=== PATIENT | female | born 1945 | race Caucasian/White ===

== ENCOUNTER 2019-09-24 01:36 | Emergency (ER) | payer MEDICARE, SELFPAY ==
--- NOTE | 2019-09-24 01:35 | ECG_ITS ---
Measurements Intervals [place] Rate: 94 P: 70 NV: 164 QRS: 9 QRSD: 102 T: 42 QT: 349 QTc: 438 SINUS RHYTHM POSSIBLE LEFT ATRIAL ENLARGEMENT [-0.1mV P WAVE IN V1/V2] Compared to ECG 01/29/2019 21:30:33 T-wave abnormality no longer present Possible ischemia no longer present Electronically Signed On 09-24-2019 20:11:43 INSTRUMENT REPAIR SPECIALIST by Moustapha Santana M.D. [id number] f
[2019-09-24 01:36] VITALS: BP 106/62; PULSE 166; RESP 20; O2SAT 96
[2019-09-24 01:39] VITALS: BP 104/88; PULSE 166; RESP 22; TEMP 36.6; O2SAT 99; BMI 29.2
--- NOTE | 2019-09-24 01:41 | ED_ITS ---
Entered by Tawny Rdz, acting as scribe for Master Wells MD HPI - Arrhythmia/Palpitations General: Chief Complaint: Arrhythmia/Palpitations Stated Complaint: FAST HR Time Seen by Provider: 09/24/19 01:38 Source: patient and family Mode of arrival: ambulatory Limitations: no limitations History of Present Illness: HPI narrative: 74 y/o female presents to the ED with complaint of rapid heart rate. Pt states this started around 2030 last night. She has of hx of this and is followed by Dr. Sinha. TREADWELL complaint: rapid heart beat and heart racing Onset (ago): hour(s) Duration: constant Severity: moderate Context: occurred during rest Associated symptoms: Deny nausea or vomiting Review of Systems Const: Denies: fever or chills Eyes: Denies: change in vision ENMT: Denies: throat pain or mouth pain Card: Reports: palpitations and irregular heart rhythm; Denies: chest pain Resp: Denies: shortness of breath GI: Denies: nausea or vomiting : Denies: difficulty urinating Musc: Denies: back pain or joint pain Skin/Breast: Denies: rash Neuro: Denies: headache or behavioral changes Psych: Denies: depression Endo: Denies: excessive urination Erasmo/Lymph: Denies: easy bruising All/Imm: Denies: hives PFSH ED PFSH: Statuses (acute, chronic, etc) shown below reflect problem list status as previously entered and may not be historically accurate Social History Smoking and tobacco status: former smoker Physical Exam Const: COMMON NORMALS: no apparent distress, oriented x3 and healthy appearing HENMT: COMMON NORMALS: normocephalic and external nose normal HEAD & SCALP: normocephalic NOSE: external nose normal Eye: COMMON NORMALS: PERRL PUPIL: Yes PERRL Neck/C-Spine: COMMON NORMALS: full ROM and no lymphadenopathy Chest: COMMONS NORMALS: inspection of chest normal Resp: COMMON NORMALS: normal respiratory effort, no use of accessory muscles and clear to auscultation bilaterally AUSCULTATION: clear to auscultation bilaterally Cardio: RATE: tachycardic RHYTHM: abnormal rhythm GI: COMMON NORMALS: normal to inspection, nondistended, normoactive bowel sounds, soft to palpation, non-tender and no masses PALPATION: Yes soft Back/Pelvis: THORACIC SPINE/UPPER BACK: Yes normal to inspection Extremity: COMMON NORMALS: normal to inspection, full ROM and normal capillary refill Neuro: COMMON NORMALS: oriented x3 Psych: COMMON NORMALS: mental status grossly normal and cooperative Skin: COMMON NORMALS: no rashes or lesions noted GENERAL SKIN EXAM: no rashes or lesions noted Course Vital Signs: Vital signs: Vital Signs Temperature 97.8 F 09/24/19 01:39 Pulse Rate 166 H 09/24/19 01:39 Respiratory Rate 22 H 09/24/19 01:39 Blood Pressure 104/88 09/24/19 01:39 Pulse Oximetry 99 09/24/19 01:39 MDM - Arrhythmia/Palpitations MDM Narrative: Medical decision making narrative: Patient presents here with SVT. Patient converted here with adenosine. Patient feels much improved and is well-appearing here. 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 Patient is return if worsening. EKG Data^: EKG 1: Attestation: I personally reviewed and interpreted this EKG as follows: EKG interpretation date: 09/24/19 EKG interpretation time: 01:48 Interpretation: svt hr [address] or t wave abnormalities EKG 2: Attestation: I personally reviewed and interpreted this EKG as follows: EKG interpretation date: 09/24/19 EKG interpretation time: 02:07 Interpretation: nsr hr [address] or t wave abnormalities Discharge Plan Discharge Patient Disposition: Home, Self-Care Clinical Impression: Supraventricular tachycardia Condition: Stable Discharge Orders: Discharge Order (Routine); Ordered 09/24/19 Ordered By: Master Wells Referrals: Gamaliel Smith, MITERING MACHINE OPERATOR-C [Primary Care Provider] - Angeles Sanchez MD [Physician] - 4-7 days Discharge Diet: Advance as tolerated Discharge Activity: Resume usual activity Patient Instructions: Supraventricular Tachycardia (ED) Coding Level of Care Code ED Fraternity House Cook for Chg Fwd Exam Problem Focused The documentation recorded by the Kendell yung Ashley, accurately reflects the service I personally performed and the decisions made by Priscilla elias Korby, MD Sep 24, 2019 01:36
[2019-09-24 01:50] VITALS: PULSE 86; RESP 14
--- NOTE | 2019-09-24 01:57 | ECG_ITS ---
Measurements Intervals [place] Rate: 162 P: ND: 0 QRS: 11 QRSD: 107 T: 58 QT: 266 QTc: 437 ATRIAL FLUTTER/TACHYCARDIA WITH RAPID VENTRICULAR RESPONSE INCOMPLETE RIGHT BUNDLE BRANCH BLOCK [90+ ms QRS DURATION, TERMINAL R IN V1/V2, 40+ 40+ ms S IN I/aVL/V4/V5/V6] MODERATE ST DEPRESSION [0.05+ mV ST DEPRESSION] CRITICAL TEST RESULT Compared to ECG 01/29/2019 21:30:33 Incomplete right bundle-branch block now present ST (T wave) deviation now present Sinus rhythm no longer present T-wave abnormality no longer present Possible ischemia no longer present Electronically Signed On 09-24-2019 20:11:40 BASIN CLEANER by Moustapha Santana M.D. [id number] bailey
[2019-09-24 03:39] VITALS: BP 117/78; PULSE 84; RESP 16; TEMP 36.9; O2SAT 96
--- NOTE | 2019-09-26 09:47 | DCPLANNER ---
support manager had message to schedule a follow up appointment for patient with [facility]. support manager called [facility], spoke with Sherri, a follow up appointment is scheduled for , September 25, [address] Sanchez. Clinic will call patient with appointment information.
== END 2019-09-24 03:02 | disposition home or self-care (01) ==
PROVIDERS: Emergency Provider Emergency Medicine; Family Provider Nurse Practitioner; PCP Nurse Practitioner
DX: I47.1 Supraventricular tachycardia (principal); Z87.891 Personal history of nicotine dependence
CPT/HCPCS: 93005; 99282

== ENCOUNTER → 2019-11-06 13:30 | Outpatient (BNVA) | payer MEDICARE, SELFPAY | PROVIDERS: Family Provider Nurse Practitioner; PCP Nurse Practitioner; Visit Provider Nurse Practitioner | DX: M25.552 Pain in left hip (principal) | CPT/HCPCS: 73502 ==

== ENCOUNTER → 2019-11-17 10:43 | Outpatient (BNVA) | payer MEDICARE, SELFPAY | PROVIDERS: Family Provider Nurse Practitioner; PCP Nurse Practitioner; Visit Provider Nurse Practitioner | DX: E87.6 Hypokalemia (principal) | CPT/HCPCS: 80048 ==

== ENCOUNTER 2019-11-19 14:39 | Outpatient (CLI) | payer MEDICARE, SELFPAY ==
--- NOTE | 2019-11-19 14:51 | XR_ITS ---
WS: [id number] Cervical spine, 3 views, 11/19/2019 Clinical Data: Neck pain Comparison: None. Findings: No compression fractures are seen. There is disc space narrowing at C3-C4 through C6-C7. Th ere is loss of the normal lordotic curvature. Anterior osteophyte formation from C3 through C6 is not ed. There is also posterior osteophyte formation from C3 through C7.. There is no prevertebral soft t issue swelling. The odontoid is unremarkable. The soft tissues of the neck show only minimal calcific ation in the soft tissues the lung apices are normal. XR/XR cervical spine 3V* [id number] Impression: 1. Osteoarthritis with degenerative disc disease from C3 through C7. 2. Minimal calcification in the soft tissues of the neck.
--- NOTE | 2019-11-19 14:51 | XR_ITS ---
WS: [id number] LUMBAR SPINE TECHNIQUE: 3 views of the lumbar spine CLINICAL INFORMATION: back pain COMPARISON: None. FINDINGS: Moderate lumbar scoliosis convex right. 5 nonrib-bearing lumbar vertebral bodies. Disc space narrowin g worse at L2-L3, L3-L4, L4-L5, and L5-S1. Vacuum disc phenomenon L3-4. Chronic appearing anterior we dging at L2 and L3. Slight retrolisthesis L3 on L4 and L4 on L5. Anterior hypertrophic changes. Advan janeen arthropathy lower lumbar spine. Pelvic phleboliths. XR/XR lumbar spine 2-3V* [id number] IMPRESSION: 1. Moderate lumbar scoliosis convex right. 2. Chronic appearing anterior wedging L2-3. 3. Advanced disc space narrowing L2-L3, L3-L4, L4-L5, and L5-S1. This is progr essed since the MRI 2018. 4. Slight retrolisthesis L3 on L4 and L4 on L5.
--- NOTE | 2019-11-19 14:51 | XR_ITS ---
WS: [id number] Thoracic spine, 3 views, 11/19/2019 Clinical Data: back pain Comparison: None. Findings: No compression fractures are seen. There is disc space narrowing from T5-T6 through T9-T10. There is a dextroscoliosis of the thoracic spine. Moderate osteoarthritic changes of the anterior tho racic vertebral bodies T5 through T11 is seen. There is a left shoulder arthroplasty. XR/XR thoracic spine 3V* [id number] Impression: 1. Degenerative disc narrowing and osteoarthritis from T5-T6 through T9-T10. 2. Dextroscoliosis of the thoracic spine.
== END 2019-11-19 14:40 | disposition home or self-care (01) ==
PROVIDERS: Family Provider Nurse Practitioner; PCP Nurse Practitioner; Visit Provider Nurse Practitioner
DX: M41.86 Other forms of scoliosis, lumbar region (principal); M47.896 Other spondylosis, lumbar region; M47.894 Other spondylosis, thoracic region; M54.2 Cervicalgia; M54.5 Low back pain
CPT/HCPCS: 72040; 72072; 72100

== ENCOUNTER → 2019-12-01 16:09 | Outpatient (BNVA) | payer MEDICARE, SELFPAY | PROVIDERS: Family Provider Nurse Practitioner; PCP Nurse Practitioner; Visit Provider Nurse Practitioner | DX: I47.1 Supraventricular tachycardia (principal); B35.1 Tinea unguium | CPT/HCPCS: 80053 ==

== ENCOUNTER → 2020-03-02 13:52 | Outpatient (BNVA) | payer MEDICARE, SELFPAY | PROVIDERS: Family Provider Nurse Practitioner; PCP Nurse Practitioner; Visit Provider Nurse Practitioner | DX: E78.5 Hyperlipidemia, unspecified (principal) | CPT/HCPCS: 80053; 80061 ==

== ENCOUNTER 2020-03-09 12:30 | Observation (INO) | payer MEDICARE, SELFPAY ==
[2020-03-09] VITALS (13 sets, daily range): BP systolic 83–145; BP diastolic 53–86; PULSE 58–86; RESP 14–18; TEMP 36.5–36.7; O2SAT 91–100; BMI 23.2
--- NOTE | 2020-03-09 12:37 | XRR_ITS ---
PROCEDURE INFORMATION: Exam: XR Chest, 1 View Exam date and time: 03/09/2020 12:39 PM Age: 74 years old Clinical indication: Chest pain; Type not specified TECHNIQUE: Imaging protocol: XR of the chest Views: 1 view. COMPARISON: CR Chest 1 [place] [id number] 01/29/2019 3:31 PM FINDINGS: Lungs: Unremarkable. No consolidation. Pleural space: Unremarkable. No pleural effusion. No pneumothorax. Heart/Mediastinum: Unremarkable. No cardiomegaly. Bones/joints: Unremarkable. XR/XR chest 1V portable [id number] IMPRESSION: No acute findings.
--- NOTE | 2020-03-09 12:37 | ECG_ITS ---
[facility] Test Date: 2020-03-09 Pat Name: Hanna Murphy Department: Room: Gender: Female Social Services Assistant: : 1945 Requested By: Brayan Virk Order Number: [id number] Liyah MD: Moustapha Santana M.D. Measurements Intervals [place] Rate: 86 P: 77 NC: 184 QRS: 28 QRSD: 88 T: 70 QT: 374 QTc: 449 Interpretive Statements SINUS RHYTHM WITH OCCASIONAL VENTRICULAR PREMATURE COMPLEXES POSSIBLE RIGHT VENTRICULAR CONDUCTION DELAY [RSR (QR) IN V1/V2] Compared to ECG 09/24/2019 02:07:29 Ventricular premature complex(es) now present Electronically Signed On 03-09-2020 19:33:19 CDT by Moustapha Santana M.D. [email or web address] general [email or web address] Biomedical Inc.[email or web address]/store/NU/[id number] f
[2020-03-09 13:27] LABS: Basophils % 0.3 %; Eosinophils # 0.1 10^3/uL (0.0-0.8); Eosinophils % 0.7 %; Hematocrit 41.4 % (37.0-47.0); Hemoglobin 13.4 g/dL (11.5-15.3); Lymphocytes # 1.8 10^3/uL (0.8-4.8); Mean Corpuscular HGB Conc 32.4 g/dL (30.0-36.0); Mean Corpuscular Hemoglobin 30.6 pg (28.0-34.0); Mean Corpuscular Volume 94.5 fL (81-99); Mean Platelet Volume 10.1 fL (7.4-10.4); Monocytes # 0.5 10^3/uL (0.2-0.9); Monocytes % 7.2 %; Neutrophils # 4.3 10^3/uL (1.8-7.7); Neutrophils % 64.5 %; Nucleated Red Blood Cells % 0 %; Platelet Count 249 10^3/cmm (130-400); Red Blood Count 4.38 10^6/uL (4.1-5.3); Red Cell Distribution Width 13.4 % (12.1-15.1); White Blood Count 6.7 10^3/uL (4.0-10.0)
--- NOTE | 2020-03-09 13:37 | W.ED.CHESTPA ---
HPI - Chest Pain General: Chief Complaint: Chest Pain Stated Complaint: SVT Time Seen by Provider: 03/09/20 12:37 History of Present Illness: HPI narrative: 74-year-old female comes in a near syncopal episode. Evidently she has had several of these episodes last few months that she eventually got a loop recorder they did do an ablation in December. Since then she is not had any syncopal episodes today she was standing at the sink making some sandwiches started get lightheaded and dizzy states she went down to her knees she never really fully lost consciousness did not actually fall she did not strike her head or have any other kind of trauma she felt like for a minute her heart was racing and her vision went black and that resolved. She does have a loop recorder in place which she analyzed and forwarded and were trying to get the results of that now. She had several of these episodes in the past but she said this 1 seemed more severe to the first 1 since the ablation she had done in December she not having any symptoms at all now when I see her in the emergency room. She usually sees Dr. mitchell. Did report having some chest pain during this episode. MD complaint: chest pain Pertinent past history: other (PSVT) Onset (ago): minute(s) Timing of current episode: episodic and now resolved Prior episodes: Yes Onset: during rest Pain location: left chest Severity: mild Quality: heaviness Relieving factors: nothing Exacerbating factors: nothing and other (Resolution of symptoms resolved the chest pain) Context: other (Known history of SVT with previous ablation in December of this year) Associated symptoms: Reports nausea, palpitations, sense of impending doom and syncope (Near syncopal episode); Deny dyspnea or fever(s) Treatment prior to arrival: none Review of Systems Const: Denies: fever(s), chills, body aches, change in appetite, fatigue or malaise ENMT: Denies: throat pain, ear or mastoid pain, nasal discharge or nasal congestion Card: Reports: palpitations and syncope (Near syncopal episode) Resp: Denies: dyspnea, productive cough or non-productive cough GI: Reports: nausea : Denies: flank pain, difficulty voiding, dysuria, urinary frequency or urinary urgency Skin/Breast: Denies: rash or pruritus PFS ED PFSH: Medical History Hyperlipidemia, unspecified Insomnia Juvenile idiopathic scoliosis, thoracolumbar region Restless leg Surgical History History of colonoscopy 2004 History of cystocele History of hysterectomy 04/22/2018 with BSO History of knee surgery Bilateral scope History of repair of rectocele History of shoulder surgery 2002 right shoulder replacement with 2 rotater cuff History of tubal ligation 1976 Family History Mother Cancer mother Heart disease Father Cancer lung Sister Hypertension Social History Smoking and tobacco status: former smoker Smoking risk assessment/counseling performed?: No Alcohol intake: never Desire information about alcohol rehabilitation?: No Counseling given: No Desire information about substance/drug rehabilitation?: No Counseling given: No Caregiver/support person: No Lives independently: Yes Household members: spouse Housing: House Marital status: Number of children: 2 Current occupational status: unemployed History of recent travel: No Current gender identity: Female Physical Exam Const: COMMON NORMALS: no acute distress GENERAL APPEARANCE: cooperative and comfortable ORIENTATION/CONSCIOUSNESS: Yes awake, Yes oriented to person, Yes oriented to place and Yes oriented to time HENMT: COMMON NORMALS: normocephalic, atraumatic, hearing grossly normal bilaterally, external ears normal, EAC's normal, TM's normal bilaterally, Normal nasal mucous membranes and turbinates present, moist oral mucous membranes and oropharynx normal HEAD & SCALP: normocephalic and atraumatic NOSE: Normal nasal mucous membranes and turbinates present EXTERNAL EAR: Yes external ears normal EXTERNAL AUDITORY CANAL: EAC's normal TYMPANIC MEMBRANE: TM's normal bilaterally Eye: COMMON NORMALS: Equal, round and reactive pupils present, EOMs intact bilaterally, conjunctivae normal and no scleral icterus CONJUNCTIVA: Yes conjunctivae normal PUPIL: Yes Equal, round and reactive pupils present Neck/C-Spine: COMMON NORMALS: full ROM, no lymphadenopathy, supple and no JVD Lymph: LYMPHATIC: no lymphadenopathy noted and no lymphedema noted Resp: COMMON NORMALS: normal respiratory effort, No retractions, No use of accessory muscles and clear to auscultation bilaterally AUSCULTATION: clear to auscultation bilaterally Cardio: COMMON NORMALS: no JVD, regular rate, regular rhythm and No murmurs present (Cardio) RATE: regular rate RHYTHM: regular rhythm GI: COMMON NORMALS: Soft to palpation and No hepatosplenomegaly present AUSCULTATION: Yes normoactive bowel sounds PALPATION: Yes Soft to palpation, No Tenderness to palpation present (GI), No Guarding due to palpation present (GI) and Yes No hepatosplenomegaly present Extremity: COMMON NORMALS: normal to inspection, capillary refill normal, no clubbing, cyanosis or edema, no calf tenderness and no pedal edema Neuro: SENSORIUM/ORIENTATION: Yes oriented to person, Yes oriented to place and Yes oriented to time Skin: COMMON NORMALS: no rashes or lesions noted GENERAL SKIN EXAM: no rashes or lesions noted Course Vital Signs: Vital signs: Vital Signs Temperature 98.6 F 03/10/20 13:55 Pulse Rate 75 03/10/20 13:55 Respiratory Rate 18 03/10/20 13:55 Blood Pressure 110/71 03/10/20 13:55 Pulse Oximetry 95 03/10/20 13:55 MDM - Chest Pain MDM Narrative: Medical decision making narrative: We were able to get a hold of a loop monitor she had another episode of SVT on a loop monitor that was sustained and resolved spontaneously. When he got and put her on the floor and watch her for a time may need further medications adjustments. Lab Data: Labs: Lab Results 03/09/20 03/09/20 03/09/20 Range/Units 13:10 13:10 13:10 WBC 6.7 (4.0-10.0) 10^3/ uL RBC 4.38 (4.1-5.3) 10^6/u L Hgb 13.4 (11.5-15.3) g/dL Hct 41.4 (37.0-47.0) % MCV 94.5 (81-99) fL MCH 30.6 (28.0-34.0) pg MCHC 32.4 (30.0-36.0) g/dL RDW 13.4 (12.1-15.1) % Plt Count 249 (130-400) 10^3/c mm MPV 10.1 (7.4-10.4) fL Neut % (Auto) 64.5 % Lymph % (Auto) 27.0 % Mineral % (Auto) 7.2 % Eos % (Auto) 0.7 % Baso % (Auto) 0.3 % Neut # (Auto) 4.3 (1.8-7.7) 10^3/u L Lymph # (Auto) 1.8 (0.8-4.8) 10^3/u L Mineral # (Auto) 0.5 (0.2-0.9) 10^3/u L Eos # (Auto) 0.1 (0.0-0.8) 10^3/u L Baso # (Auto) 0.0 (0.0-0.1) 10^3/u L Nucleated RBC % (a uto) 0 % Nucleated RBCs # 0.0 /100WBC Sodium 142 (136-145) mmol/L Potassium 3.7 (3.5-5.1) mmol/L Chloride 106 (98-107) mmol/L Carbon Dioxide 22 (22-29) mmol/L Anion Gap 17.7 (5-19) BUN 15 (8-23) mg/dL Creatinine 0.8 (0.5-0.9) mg/dL Glucose 90 (65-115) mg/dL Calculated Osmolal ity 290 (285-295) mOsm/k g Calcium 9.4 (8.5-10.5) mg/dL Total Bilirubin 0.4 (0.15-1.2) mg/dL AST 27 (0-32) U/L ALT 24 (0-33) U/L Alkaline Phosphata se 59 (35-105) IU/L Troponin T Baselin e 21 H (0-10) ng/L Troponin T 120 Min amirah (0-10) ng/L Delta Troponin T (0-10) ABS# Total Protein 6.8 (6.6-8.7) g/dL Albumin 4.1 (3.5-5.2) g/dL Globulin 2.7 (1.3-4.6) g/dL /30/20 Range/Units 15:10 WBC (4.0-10.0) 10^3/ uL RBC (4.1-5.3) 10^6/u L Hgb (11.5-15.3) g/dL Hct (37.0-47.0) % MCV (81-99) fL MCH (28.0-34.0) pg MCHC (30.0-36.0) g/dL RDW (12.1-15.1) % Plt Count (130-400) 10^3/c mm MPV (7.4-10.4) fL Neut % (Auto) % Lymph % (Auto) % Mineral % (Auto) % Eos % (Auto) % Baso % (Auto) % Neut # (Auto) (1.8-7.7) 10^3/u L Lymph # (Auto) (0.8-4.8) 10^3/u L Mineral # (Auto) (0.2-0.9) 10^3/u L Eos # (Auto) (0.0-0.8) 10^3/u L Baso # (Auto) (0.0-0.1) 10^3/u L Nucleated RBC % (a uto) % Nucleated RBCs # /100WBC Sodium (136-145) mmol/L Potassium (3.5-5.1) mmol/L Chloride (98-107) mmol/L Carbon Dioxide (22-29) mmol/L Anion Gap (5-19) BUN (8-23) mg/dL Creatinine (0.5-0.9) mg/dL Glucose (65-115) mg/dL Calculated Osmolal ity (285-295) mOsm/k g Calcium (8.5-10.5) mg/dL Total Bilirubin (0.15-1.2) mg/dL AST (0-32) U/L ALT (0-33) U/L Alkaline Phosphata se (35-105) IU/L Troponin T Baselin e (0-10) ng/L Troponin T 120 Min amirah 30.47 H (0-10) ng/L Delta Troponin T 9.47 (0-10) ABS# Total Protein (6.6-8.7) g/dL Albumin (3.5-5.2) g/dL Globulin (1.3-4.6) g/dL Discharge Plan Discharge Patient Disposition: Admitted As Inpatient Admit Provider: Reyes Hodge Clinical Impression: Supraventricular tachycardia Condition: Stable Discharge Orders: Discharge Order (Routine); Ordered 03/10/20 Ordered By: Reyes Hodge Discharge Diet: Cardiac Discharge Activity: Resume usual activity Interventions: ED Discharge Assessment Last Done: 03/09/20 16:35 ED Charges Last Done: 03/09/20 16:35 Discharge Date/Time: 03/09/20 16:36 Coding Level of Care Code ED Drop Wire Aligner for Chg Fwd Exam Comprehensive
[2020-03-09 13:54] LABS: Alanine Aminotransferase 24 U/L (0-33); Albumin Level 4.1 g/dL (3.5-5.2); Alkaline Phosphatase 59 IU/L (35-105); Anion Gap 17.7 (5-19); Aspartate Amino Transferase 27 U/L (0-32); Blood Urea Nitrogen 15 mg/dL (8-23); Calcium 9.4 mg/dL (8.5-10.5); Carbon Dioxide 22 mmol/L (22-29); Chloride 106 mmol/L (98-107); Globulin 2.7 g/dL (1.3-4.6); Glucose 90 mg/dL (65-115); Osmolality Calculated 290 mOsm/kg (285-295); Potassium 3.7 mmol/L (3.5-5.1); Sodium 142 mmol/L (136-145); Total Bilirubin 0.4 mg/dL (0.15-1.2); Total Protein 6.8 g/dL (6.6-8.7)
[2020-03-09 13:56] LABS: Troponin(5th) Baseline 21 ng/L (0-10)
[2020-03-09] MEDS: sodium chloride 0.9% 1,000 ML 999 ML IV ×3 (14:10→22:51)
--- NOTE | 2020-03-09 14:29 | PC.NURSE ---
loop recorder interrogation complete.
--- NOTE | 2020-03-09 14:37 | ECG_ITS ---
[facility] Test Date: 2020-03-09 Pat Name: Hanna Murphy Department: Room: Gender: Female Inventory Associate: : 1945 Requested By: Brayan Virk Order Number: [id number] Liyah MD: Moustapha Santana M.D. Measurements Intervals [place] Rate: 61 P: 77 [place]: 196 QRS: 20 QRSD: 97 T: 53 QT: 415 QTc: 419 Interpretive Statements SINUS RHYTHM POSSIBLE RIGHT VENTRICULAR CONDUCTION DELAY [RSR (QR) IN V1/V2] Compared to ECG 03/09/2020 12:42:38 Ventricular premature complex(es) no longer present Electronically Signed On 03-09-2020 19:34:13 CDT by Moustapha Santana M.D. [email or web address] centerTG Therapeuticsohio[facility].[employer]/store/OM/[id number]
[2020-03-09 15:34] LABS: Troponin 5 2HR 30.47 ng/L (0-10); Troponin 5 2HR Delta 9.47 ABS# (0-10)
--- NOTE | 2020-03-09 18:37 | ECG_ITS ---
[facility] ED Test Date: 2020-03-09 Pat Name: Hanna Murphy Department: Room: 111 Gender: Female Learning Administrator: : 1945 Requested By: Brayan Virk Order Number: [id number] Liyah MD: Moustapha Santana M.D. Measurements Intervals [place] Rate: 69 P: 69 [place]: 195 QRS: 33 QRSD: 94 T: 33 QT: 394 QTc: 425 Interpretive Statements SINUS RHYTHM Compared to ECG 03/09/2020 14:45:00 No significant changes Electronically Signed On 03-09-2020 19:34:23 CDT by Moustapha Santana M.D. [email or web address] Pharmaceuticalsuniversity of mississippi medical centerTPI Compositesohiohealth berger hospital.[employer]/store/OM/[id number]
--- NOTE | 2020-03-09 18:49 | P.HP_ITS ---
Providers/Chief Complaint Admitting Physician: Reyes Hodge MD Primary Care Provider: Gamaliel Smith, [employer] Chief Complaint: SVT History of Present Illness Hanna Murphy is a 74 year old female with PMH of SVT, s/p ablation in december 2019 at [facility], in situ loop recorder who presented to the ER today with EMS after she had a syncopal event in morning. Patient states she was in the kitchen working on a sandwich when she started having palpitations followed by nausea, dizziness and weakness in her legs. At that point she called loop recorder company and was told to have been having an SVT with heart rate going into 150s to 180 bpm. At that point she called the EMS. EMS gave her adenosine 6 followed by 12 after which her heart rate settled down to 50s. She was brought to the ER. Since being in the hospital patient has been rate controlled with her heart rate running in 60s and 70s. Patient denies of having any diarrhea, nausea, changes in her bowel movements, dysuria, cough, runny nose, fevers, changes in her medications recently. Patient's blood work done in the ER shows a hemoglobin of 13.4 with a normal white count with a normal sodium of 142, creatinine of 0.8, baseline troponin of 21 with a delta at 2 hours of 9. Review of Systems Const: Denies: fever(s), chills, body aches, change in appetite, malaise, night sweats, diaphoresis, change in sleep pattern, daytime sleepiness or snoring Eyes: Denies: change in vision, blurry vision, photophobia, eye discomfort or eye discharge ENMT: Denies: throat pain, enlarged tonsils, hoarseness, mouth pain, oral sores, dry mouth, tinnitus, nasal congestion or post nasal drip Card: Denies: chest pain, palpitations, irregular heart rhythm, edema, swelling of feet/ankles, lightheadedness, syncope, pre-syncope, dyspnea on exertion, orthopnea, leg pain with exertion or acrocyanosis Resp: Denies: dyspnea, productive cough, non-productive cough, wheezing, stridor, pain on inspiration, change in phlegm color, hemoptysis or chest congestion GI: Denies: abdominal pain, nausea, vomiting, hematemesis, coffee ground emesis, dysphagia, heartburn, diarrhea, constipation, bloating, GI cramping, change in bowel habits, pain on defecation, hematochezia or melena : Denies: flank pain, dysuria, urinary frequency, urinary urgency, urinary hesitancy, nocturia or hematuria Musc: Denies: neck pain, back pain, extremity pain, joint pain, joint swelling, joint redness, joint stiffness or limited range of motion Neuro: Reports: numbness in extremities, weakness in extremities and dizziness; Denies: headache(s), sensory changes, lack of coordination, difficulty walking, frequent falls, vertigo, confusion, Slurred speech present, difficulty communicating thoughts or seizure-like activity Psych: Denies: anxiety, depression, mood swings, panic attacks, hopelessness or irritability Endo: Denies: polyuria, polydipsia, tired all the time, cold intolerance, excessive sweating, flushing or heat intolerance Erasmo/Lymph: Denies: easy bruising or easy bleeding All/Imm: Denies: tongue swelling, facial swelling or acute wheezing Medications/Allergies Home Medications Medication Instructions Recorded Confirmed Last Taken Type furosemide 20 mg tablet 20 mg PO QAM PRN #90 tab 09/30/19 03/09/20 Unknown Rx nitroglycerin 0.4 mg sublingual 0.4 mg SUBLINGUAL PRN 09/30/19 03/09/20 03/09/20 History tablet potassium chloride 10 mEq 10 meq PO DAILY #90 tab 03/02/20 03/09/20 03/08/20 Rx tablet,extended release(part/cryst) tizanidine 4 mg tablet 4 mg PO BID PRN #180 tab 03/02/20 03/09/20 Unknown Rx zonisamide 100 mg capsule 100 mg PO BID #180 cap 03/02/20 03/09/20 03/08/20 Rx Lipitor 20 mg PO DAILY 03/09/20 03/09/20 03/08/20 History zolpidem 10 mg PO BEDTIME 03/09/20 03/09/20 03/08/20 History Allergies Allergy/AdvReac Type Severity Reaction Status Date / Time doxycycline Allergy ALGY-Rash Verified 03/09/20 13:55 trazodone Allergy feels weird Verified 03/09/20 13:55 PFSH Acute PFSH: Medical History Hyperlipidemia, unspecified Insomnia Juvenile idiopathic scoliosis, thoracolumbar region Restless leg Surgical History History of colonoscopy 2004 History of cystocele History of hysterectomy 04/22/2018 with BSO History of knee surgery Bilateral scope History of repair of rectocele History of shoulder surgery 2002 right shoulder replacement with 2 rotater cuff History of tubal ligation 1976 Family History Mother Cancer mother Heart disease Father Cancer lung Sister Hypertension Social History Smoking and tobacco status: former smoker Smoking risk assessment/counseling performed?: No Alcohol intake: never Desire information about alcohol rehabilitation?: No Counseling given: No Desire information about substance/drug rehabilitation?: No Counseling given: No Caregiver/support person: No Lives independently: Yes Household members: spouse Housing: House Marital status: Number of children: 2 Current occupational status: unemployed History of recent travel: No Current gender identity: Female Vitals/I&O/Wt Last Vital Signs Temp 98.1 F 03/09/20 12:31 Pulse 66 03/09/20 17:00 Resp 18 03/09/20 17:00 BP 122/86 03/09/20 17:00 Pulse Ox 97 03/09/20 17:00 03/09/20 03/09/20 03/09/20 06:59 14:59 22:59 Intake Total 240 / 240 Balance 240 / 240 Weight last 48 hrs Weight 55.792 kg Physical Exam Narrative: EXAM NARRATIVE: General: No acute distress, AO x3, dehydrated HEENT: PERRLA, pupils bilaterally equal and reactive Chest: Normal vesicular breath sounds, no added sounds, equal good air entry bilaterally CVS: S1-S2 regular, no murmurs, no tachycardia, no gallops, no rubs Abdomen: Soft, nontender, no organomegaly, bowel sounds present Neuro: No focal deficits, no facial deformity, AO x3, power 5/5 in all limbs Data : 03/09/20 13:10 03/09/20 13:10 A&P Assessment and plan (1) Supraventricular tachycardia: Status: Chronic (2) Syncope: Status: Acute Additional A&P Information Syncope secondary to supraventricular tachycardia: Patient is post ablation in December 11, 2019 Patient is not on any rate limiting drugs. Denies of having any changes in her medications, flu, fever-like symptoms. Troponins are negative. Check TSH. Last TSH in 2018 was within normal limits. Check echocardiogram. Case discussed with Dr. Sanchez. Start patient on metoprolol succinate 12.5 mg overnight and will monitor heart rate and blood pressures. Hold metoprolol for blood pressures less than 110 s ystolic. Normal saline at 100 cc/h. Check lipid panel, HbA1c, iron panel. Full code. Lovenox for DVT prophylaxis Regular cardiac diet. Attestations Medical Necessity Statement*: Observation. Admission for less than 48 hours for supplemental tachycardia. Time Spent in Patient Care: Greater than 35 minutes (>than 50% of time spent in counselling and/or direct pt care on unit) . Coding Level of Care Code Acute Inclusion Specialist for [place] Diagnoses Supraventricular tachycardia I47.1 Syncope R55
[2020-03-09] MEDS: ALPRAZolam 0.25 mg Tablet PO (18:58)
--- NOTE | 2020-03-09 19:04 | PC.NURSE ---
Verified with pharmacy that Metroprolol Succinate XL can be split in half in order to give correct dose ordered.
--- NOTE | 2020-03-09 19:08 | PC.NURSE ---
Dr. Callejas notified of blood pressure of 87/56. Ordered to hold 12.5 mg of Metoprolol Succinate that is due at this time. Fluid bolus will be ordered.
[2020-03-09] MEDS: enoxaparin 40 mg/0.4 mL Syringe SUBCUT (19:11)
--- NOTE | 2020-03-09 19:15 | PC.NURSE ---
Spoke with Dr. Fontanez who said to give Metoprolol if systolic blood pressure comes up to 110 after NS bolus is given.
[2020-03-09 19:53] LABS: Troponin 5 6HR 29.02 ng/L (0-10); Troponin 5 6HR Delta 8.02 ng/L (0-12)
[2020-03-09 19:55] LABS: Iron 71 ug/dL (37-145); Percent Saturation 31.6 % (20-50); Total Iron Binding Capacity 224 mcg/dl; Unsaturated Iron Binding 153 ug/dL (112-347)
[2020-03-09 20:05] LABS: Thyroid Stimulating Hormone 1.36 uIU/mL (0.27-4.20)
[2020-03-09] MEDS: sodium chloride 0.9% 1,000 ML 75 ML IV (20:31)
--- NOTE | 2020-03-09 21:32 | PC.NURSE ---
Dr. Callejas notified of patient's blood pressure currently 88 systolic. Right after bolus finished systolic was 95. Patient is asking for something to help her sleep, stating she takes Ambien at home. Patient received Xanax at shift change. Dr. Callejas notified of this. Ordered to give Midodrine 10 mg now.
[2020-03-09] MEDS: midodrine 5 mg TABLET 10 MG PO (21:55)
--- NOTE | 2020-03-09 22:39 | PC.NURSE ---
Dr. Callejas notified of blood pressure of 92/56 after Midodrine. She is still asking for her home dose of Ambien or something else to help her sleep.
[2020-03-10] VITALS (8 sets, daily range): BP systolic 86–115; BP diastolic 51–74; PULSE 53–75; RESP 15–18; TEMP 36.5–37; O2SAT 93–98
[2020-03-10 04:51] LABS: Basophils % 0.8 %; Eosinophils # 0.1 10^3/uL (0.0-0.8); Eosinophils % 1.6 %; Hemoglobin 11.1 g/dL (11.5-15.3); Lymphocytes # 2.2 10^3/uL (0.8-4.8); Lymphocytes % 42.7 %; Mean Corpuscular HGB Conc 31.7 g/dL (30.0-36.0); Mean Corpuscular Hemoglobin 30.7 pg (28.0-34.0); Mean Platelet Volume 11.1 fL (7.4-10.4); Monocytes # 0.4 10^3/uL (0.2-0.9); Monocytes % 7.4 %; Neutrophils # 2.4 10^3/uL (1.8-7.7); Neutrophils % 47.3 %; Nucleated Red Blood Cells % 0 %; Platelet Count 206 10^3/cmm (130-400); Red Blood Count 3.61 10^6/uL (4.1-5.3); Red Cell Distribution Width 13.7 % (12.1-15.1); White Blood Count 5.1 10^3/uL (4.0-10.0)
[2020-03-10 05:15] LABS: Alanine Aminotransferase 14 U/L (0-33); Albumin Level 3.1 g/dL (3.5-5.2); Alkaline Phosphatase 43 IU/L (35-105); Anion Gap 12.4 (5-19); Aspartate Amino Transferase 17 U/L (0-32); Blood Urea Nitrogen 15 mg/dL (8-23); Calcium 7.8 mg/dL (8.5-10.5); Carbon Dioxide 19 mmol/L (22-29); Chloride 113 mmol/L (98-107); Globulin 1.7 g/dL (1.3-4.6); Glucose 118 mg/dL (65-115); Osmolality Calculated 289 mOsm/kg (285-295); Potassium 3.4 mmol/L (3.5-5.1); Sodium 141 mmol/L (136-145); Total Bilirubin 0.2 mg/dL (0.15-1.2); Total Protein 4.8 g/dL (6.6-8.7)
[2020-03-10 05:20] LABS: Chol HDL Ratio 2.13 mg/dL (0.0-4.40); Cholesterol 117 mg/dL (0-200); HDL Cholesterol 55 mg/dL (60-100); LDL Cholesterol Calculated 43 mg/dL (50-129); Triglycerides 95 mg/dL (0-150); VLDL Cholestrol Calculation 19 mg/dL (0-30)
[2020-03-10 05:24] LABS: Magnesium 1.6 mg/dL (1.7-2.3); Phosphorus 3.1 mg/dL (2.5-4.5)
[2020-03-10 06:20] LABS: Estmated Average Glucose 103; Hemoglobin A1C 5.2 % (4.0-6.0)
--- NOTE | 2020-03-10 07:00 | USCV_ITS ---
Hanna Murphy Age: 74 Gender: F : 1945 Exam Date: 03/10/2020 07:06 Ordering Phys: Reyes Hodge MD Technologist: Cleo Estrada [place] [facility] [place]: SVT BP: 94 / 58 HR: 143 Rhythm: Sinus Technical Quality: Good MEASUREMENTS (Male / Female) Normal Values 2D ECHO LV Diastolic Diameter PLAX 4.5 cm 4.2 - 5.9 / 3.9 - 5.3 cm LV Systolic Diameter PLAX 2.1 cm IVS Diastolic Thickness 0.9 cm 0.6 - 1.0 / 0.6 - 0.9 cm IVS Systolic Thickness 1.4 cm LVPW Diastolic Thickness 0.7 cm 0.6 - 1.0 / 0.6 - 0.9 cm LVPW Systolic Thickness 1.4 cm LVOT Diameter 2.1 cm LV Ejection Fraction 2D Teich 84.2 % LV Ejection Fraction MOD 2C 75.9 % LV Ejection Fraction 2C AL 75.9 % LA Diameter 2.5 cm LA Width 3.5 cm LA Height 4.4 cm RA Width 2.9 cm RA Height 4.6 cm M-MODE LV Diastolic Diameter MM 4.9 cm 4.2 - 5.9 / 3.9 - 5.3 cm LV Systolic Diameter MM 3.0 cm LV Ejection Fraction MM Teich 69.8 % IVS Diastolic Thickness MM 0.9 cm 0.6 - 1.0 / 0.6 - 0.9 cm IVS Systolic Thickness MM 1.3 cm LVPW Diastolic Thickness MM 0.7 cm 0.6 - 1.0 / 0.6 - 0.9 cm LVPW Systolic Thickness MM 1.5 cm Aortic Annulus Diameter 2.8 cm LA Ao Ratio MM 0.9 MV E Point Septal Separation 0.3 cm DOPPLER AV Peak Velocity 114.0 cm/s LVOT Peak Velocity 83.0 cm/s AV Area Cont Eq vti 2.6 cm squared AV Area Cont Eq pk 2.5 cm squared MV Peak Velocity 85.0 cm/s MV Area PHT 4.9 cm squared Mitral E to A Ratio 1.1 MV E' Velocity 8.0 cm/s Mitral E to MV E' Ratio 8.8 Mitral E to LV E' Lateral Ratio 8.5 Mitral E to LV E' Septal Ratio 9.3 TR Peak Velocity 213.0 cm/s TR Peak Gradient 18.2 mmHg Right Atrial Pressure 3.0 mmHg Pulmonary Artery Systolic Pressu 21.1 mmHg PV Peak Velocity 83.0 cm/s RV Acceleration Time 0.2 s FINDINGS Left Ventricle Normal left ventricular size, systolic function and wall thickness, with no regional wall motion abnormalities. Left ventricular ejection fraction is estimated at 74 %. Normal diastolic function. Right Ventricle Normal right ventricular size and systolic function. Right ventricular systolic pressure 21.1 mmHg. Right Atrium Upper normal right atrial size. Left Atrium Normal left atrial size. Mitral Valve Structurally normal mitral valve. No mitral valve stenosis. Trace mitral valve regurgitation. Aortic Valve Structurally normal trileaflet aortic valve. No aortic valve stenosis. Trace aortic valve regurgitation. Tricuspid Valve Structurally normal tricuspid valve. No tricuspid valve stenosis. Mild to moderate tricuspid valve regurgitation. Pulmonic Valve Pulmonic valve not well visualized. Trace pulmonary valve regurgitation. Pericardium No pericardial effusion. Aorta Normal sized aortic root. CONCLUSIONS 1. Normal left ventricular size, systolic function and wall thickness, with no regional wall motion abnormalities. Left ventricular ejection fraction is estimated at 74 %. Normal diastolic function. 2. Normal right ventricular size and systolic function. 3. Mild to moderate tricuspid valve regurgitation. 4. Normal pulmonary artery pressure. 5. When compared to previous echocardiogram dated 01/30/2019, there may not have been any significant change. Angeles Sanchez MD (Electronically Signed) Final Date: 10 March 2020 14:24 S
[2020-03-10] MEDS: metoprolol succinate ER (24 HR) 25 mg Tablet 12.5 MG PO (08:14)
--- NOTE | 2020-03-10 09:41 | PC.CHAP ---
Pastoral Care Encounter/Spiritual Assessment Type of Contact [] Declined chemical handler visit [] Patient/Family/Request visit [] Outpatient visit [] Follow-up visit [] Physician referral [] Code/Alert [x] Routine visit [] Staff referral [] Actively dying [] Patient sleeping [] Family support [] [] Out of room [] Palliative care [] [] Receiving care in room [] Pre-surgical visit [] Trauma [] Long length of stay [] ICU visit [] Other: Relational/Emotional Strength [] Patient feels connected with others/family/visitors/staff [] Distress [] Loneliness/isolation [] Abandonment Spirituality of Patient [] Person of Genesis [] Attends Taoism of their Genesis [] Believes in Prayer [] Reads Bible or Amish materials [] There are Spiritual issues to be addressed Self Propelled Hot Mix Roller Operator Interventions [x] Prayer [x] Active listening [x] Non-anxious presence [x] Spiritual/emotional support [] Crisis/trauma care [] Spiritual counseling [] Bereavement support [] Provided bereavement packet [] Provided Bible/devotional materials [] Provided toy/stuffed animal, coloring book to patient or family member [] Provided Communion [] Anointing/[place] [] Salvation [x] Completed spiritual assessment [] Other: Impact on Illness or Injury [] Angry [] Fearful [] Anxious [] Often cries [] Exhaustion [] Unable to work [] Unable to attend buddhism [] Unable to walk/stand [] Unable to read [] Unable to drive [] Unable to eat/drink [] Unable to sleep [] Unable to be with family [] Patient intubated [] Other: Summary Patient feeling stronger. Resting well Time spent with patient 5 min
--- NOTE | 2020-03-10 13:14 | P.CONIM_ITS ---
Providers/Reason For Consult Consulting Physican/Specialty*: Dr. Sanchez, Cardiology Reason for Consult*: recurrent SVT Attending Physician: Reyes Hodge MD Primary Care Provider: YESENIA Rhodes History of Present Illness History of Present Illness Hanna Murphy is a 74 year old female with past medical history of recurrent episodes of supraventricular tachycardia, osteoarthritis and anxiety. Patient underwent EP study last year by Dr. Villegas. At 90 minutes of effort she had dual node physiology but no AVNRT, no pathways or inducible AT could be elicited. Empiric slow pathway modification was not recommended an implantable loop recorder was recommended. There were several episodes of tachycardia, SVT/PAT noted on ILR as well as epiosdes of SVT requiring adenosine. She underwent slow pathway ablation on 11/24/[address] Isael Argueta. Runf of A fib and AFlutter noted She was doing well after that until yesterday when she developed dizziness and palpitation that made her stoop over. She developed crushing chest pain and her call EMS.This episode was her worst ever and made her feel she was going to . EKG during episode showed pseudo R' in V1 and pseudo S in inferior leads suggestive of AVNRT. She received adenosine 6 mg x 1 with res toration on NSR. Her BP ran soft overnight and did have bradycardia with intermittent HR in low 40's.I have been asked to assist in further management. Review of Systems Const: Denies: fever(s), chills, body aches, change in appetite, malaise, night sweats, diaphoresis, change in sleep pattern, daytime sleepiness or snoring Eyes: Denies: change in vision or blurry vision ENMT: Denies: throat pain, hoarseness, mouth pain, oral sores, nasal congestion or post nasal drip Card: Reports: chest pain and lightheadedness; Denies: edema, swelling of feet/ankles, syncope, dyspnea on exertion, orthopnea or leg pain with exertion Resp: Denies: dyspnea, productive cough, non-productive cough, wheezing, stridor, pain on inspiration, change in phlegm color, hemoptysis or chest congestion GI: Denies: abdominal pain, nausea, vomiting, hematemesis, coffee ground emesis, dysphagia, heartburn, diarrhea, constipation, bloating, GI cramping, change in bowel habits, hematochezia or melena : Denies: flank pain, dysuria, urinary frequency, urinary urgency, urinary hesitancy, nocturia or hematuria Musc: Denies: neck pain, back pain or extremity pain Neuro: Reports: weakness in extremities; Denies: headache(s), sensory changes, lack of coordination, difficulty walking, frequent falls, vertigo, confusion, Slurred speech present or difficulty communicating thoughts Psych: Denies: anxiety, depression, mood swings, panic attacks, hopelessness or irritability Endo: Denies: polyuria, polydipsia, tired all the time, cold intolerance, excessive sweating, flushing or heat intolerance Erasmo/Lymph: Denies: easy bruising or easy bleeding All/Imm: Denies: tongue swelling or facial swelling Meds/Allergies Home Medications and Allergies Home Medications Medication Instructions Recorded Confirmed Last Taken Type furosemide 20 mg tablet 20 mg PO QAM PRN #90 tab 09/30/19 03/09/20 Unknown Rx nitroglycerin 0.4 mg sublingual 0.4 mg SUBLINGUAL PRN 09/30/19 03/09/20 03/09/20 History tablet potassium chloride 10 mEq 10 meq PO DAILY #90 tab 03/02/20 03/09/20 03/08/20 Rx tablet,extended release(part/cryst) tizanidine 4 mg tablet 4 mg PO BID PRN #180 tab 03/02/20 03/09/20 Unknown Rx zonisamide 100 mg capsule 100 mg PO BID #180 cap 03/02/20 03/09/20 03/08/20 Rx Lipitor 20 mg PO DAILY 03/09/20 03/09/20 03/08/20 History zolpidem 10 mg PO BEDTIME 03/09/20 03/09/20 03/08/20 History magnesium oxide 400 mg PO BID #60 tab 03/10/20 Unknown Rx metoprolol succinate 12.5 mg PO DAILY #30 tab 03/10/20 Unknown Rx Allergies Allergy/AdvReac Type Severity Reaction Status Date / Time doxycycline Allergy ALGY-Rash Verified 03/09/20 13:55 trazodone Allergy feels weird Verified 03/09/20 13:55 Current Medications Current Medications Generic Name Dose Route Start Last Admin Trade Name Freq PRN Reason Stop Dose Admin Enoxaparin Sodium 40 mg 03/09/20 19:00 03/09/20 19:11 Lovenox SUBCUT 40 mg Q24H NOA Administration Metoprolol Succinate 12.5 mg 03/09/20 18:50 03/10/20 08:14 Toprol Xl PO 12.5 mg DAILY NOA Administration Zolpidem Tartrate 10 mg 03/09/20 23:00 03/09/20 22:57 Ambien PO 10 mg BEDTIME NOA Administration PFSH Acute PFSH: Medical History Hyperlipidemia, unspecified Insomnia Juvenile idiopathic scoliosis, thoracolumbar region Restless leg Surgical History History of colonoscopy 2004 History of cystocele History of hysterectomy 04/22/2018 with BSO History of knee surgery Bilateral scope History of repair of rectocele History of shoulder surgery 2002 right shoulder replacement with 2 rotater cuff History of tubal ligation 1976 Family History Mother Cancer mother Heart disease Father Cancer lung Sister Hypertension Social History Smoking and tobacco status: former smoker Smoking risk assessment/counseling performed?: No Alcohol intake: never Desire information about alcohol rehabilitation?: No Counseling given: No Desire information about substance/drug rehabilitation?: No Counseling given: No Caregiver/support person: No Lives independently: Yes Household members: spouse Housing: House Marital status: Number of children: 2 Current occupational status: unemployed History of recent travel: No Current gender identity: Female Vitals/I&O/Wt Last Vital Signs Temp 98.6 F 03/10/20 12:00 Pulse 75 03/10/20 12:00 Resp 18 03/10/20 12:00 BP 110/71 03/10/20 12:00 Pulse Ox 95 03/10/20 12:00 03/09/20 03/10/20 03/10/20 22:59 06:59 14:59 Intake Total 1540 / 1540 2187.5 / 3727.5 480 / 480 Balance 1540 / 1540 2187.5 / 3727.5 480 / 480 Weight last 48 hrs Weight 137 lb 11.2 oz Weight 123 lb Physical Exam Narrative: EXAM NARRATIVE: General: No acute distress, AAO x3, HEENT: PERRLA, pupils bilaterally equal and reactive Chest: Normal vesicular breath sounds, no wheezing, rales or rhonchi. equal good air entry bilaterally CVS: S1-S2 regular, no murmurs, no tachycardia, no gallops, no rubs Abdomen: Soft, nontender, no organomegaly, bowel sounds present Neuro: No focal deficits, AAO x3 Psych: anxious, normal speech and appropriate affect A&P Assessment and plan (1) Supraventricular tachycardia: After a detailed discussion with patient, decision to start on low dose metoprolol succinate 12.5 mg daily. -ILR interrogated showing SVT with longest run on 03/09 with median rate of 188 bpm at 10:42 am that lasted for 57 min (seems to start with PAC)and previous episodes ranging from 150-188 bm lasting few seconds and short runs of A. fib/flutter 12 min in duration in November during ablation. -Given her episodes of bradycardia, not sure if she would tolerate Flecainide. -Case was discussed with Dr. Villegas and Dr. Argueta at [facility] in [place] and will set her up for another ablation [facility]. -f/u in 2-3 weeks with me as an outpatient. May be discharged home. Status: Chronic (2) Hyperlipidemia, unspecified: Status: Chronic Qualifiers: Hyperlipidemia type: mixed hyperlipidemia Qualified Code(s): E78.2 - Mi xed hyperlipidemia Additional A&P Information Mild anemia Low BP- resolved Dehydration- resolved with IV hydration Thank you for allowing me to participate in patient's care. Please feel free to call with questions or concerns. Consult Attestations Medical Necessity Statement: Stable to be discharged. Coding Level of Care Code Acute Genetic Technologist for [place] Diagnoses Supraventricular tachycardia I47.1 Hyperlipidemia, unspecified E78.2 Hyperlipidemia type: mixed hyperlipidemia
--- NOTE | 2020-03-10 13:19 | PM.DCS ---
Discharge Providers Date of Admission: 03/09/20 15:32 Date of Discharge: March 10, 2020 Attending Provider at Admission: Reyes Hodge MD Attending Provider at Discharge: Reyes Hodge MD Consults: Cardiology: Dr. Sanchez Primary Care Provider: YESENIA Rhodes Diagnoses at Discharge Discharge Diagnosis (1) Supraventricular tachycardia: Status: Chronic (2) Syncope: Status: Acute Reason for Visit Reason for Visit: SVT Hospital Course Discharge Summary: Hanna Murphy is a 74 year old female with PMH of SVT, s/p ablation in december 2019 at [facility], in situ loop recorder who presented to the ER today with EMS after she had a syncopal event in morning. Patient states she was in the kitchen working on a sandwich when she started having palpitations followed by nausea, dizziness and weakness in her legs. At that point she called loop recorder company and was told to have been having an SVT with heart rate going into 150s to 180 bpm. At that point she called the EMS. EMS gave her adenosine 6 followed by 12 after which her heart rate settled down to 50s. She was brought to the ER. Since being in the hospital patient has been rate controlled with her heart rate running in 60s and 70s. Patient denies of having any diarrhea, nausea, changes in her bowel movements, dysuria, cough, runny nose, fevers, changes in her medications recently. Patient's blood work done in the ER shows a hemoglobin of 13.4 with a normal white count with a normal sodium of 142, creatinine of 0.8, baseline troponin of 21 with a delta at 2 hours of 9. She was admitted under observation. Cardiology was consulted. Patient did not have any further events while being in hospital both at rest or ambulation. Unfortunately due to baseline bradycardia with sleeping HR going down to 40s patient is not a good candidate for high dose rate limiting drugs. Low dose BB belem was started and she tolerated it well. On admission patient was mildly dehydrated which was treated with IV fluids. She is being discharged in stable condition with advice to follow up with cardiology in 2 weeks and her EP at [facility]. Dr. Sanchez from cardiology will reach out to EP as well and discuss her further care including furter ablation procedure. Patient is being discharged in stable condition. Physical Exam Narrative: EXAM NARRATIVE: General: No acute distress, AO x3, dehydrated HEENT: PERRLA, pupils bilaterally equal and reactive Chest: Normal vesicular breath sounds, no added sounds, equal good air entry bilaterally CVS: S1-S2 regular, no murmurs, no tachycardia, no gallops, no rubs Abdomen: Soft, nontender, no organomegaly, bowel sounds present Neuro: No focal deficits, no facial deformity, AO x3, power 5/5 in all limbs Discharge Data Data Completed and Pending: Completed Studies During Hospitalization Category Date Time Status XR chest 1V melany ble [id number] Stat Exams 03/09/20 12:37 Completed Pending at discharge Category Date Time Status CV echo complete* [id number] Routine Ultrasound 03/10/20 07:00 Taken Labs from last 24 hours 03/10/20 03/10/20 03/10/20 03:15 03:15 03:15 WBC RBC Hgb Hct MCV MCH MCHC RDW Plt Count MPV Neut % (Auto) Lymph % (Auto) [place] % (Auto) Eos % (Auto) Baso % (Auto) Neut # (Auto) Lymph # (Auto) [place] # (Auto) Eos # (Auto) Baso # (Auto) Nucleated RBC % (a uto) Nucleated RBCs # Sodium Potassium Chloride Carbon Dioxide Anion Gap BUN Creatinine Glucose Estimat Average Gl ucose 103 Hemoglobin A1c 5.2 Calculated Osmolal ity Calcium Phosphorus 3.1 Magnesium 1.6 L Iron TIBC % Saturation Unsat Iron Binding Total Bilirubin AST ALT Alkaline Phosphata se Troponin I 6 Hour Troponin I Hi Sens Del Troponin T Baselin e Troponin T 120 Min [place] Delta Troponin T Total Protein Albumin Globulin Triglycerides 95 Cholesterol 117 LDL Cholesterol, C alc 43 L Total VLDL Cholest eliu 19 HDL Cholesterol 55 L Cholesterol/HDL Ra krishan 2.13 TSH 03/10/20 03/10/20 03/09/20 03:15 03:15 19:25 WBC 5.1 RBC 3.61 L Hgb 11.1 L Hct 35.0 L MCV 97.0 MCH 30.7 MCHC 31.7 RDW 13.7 Plt Count 206 MPV 11.1 H Neut % (Auto) 47.3 Lymph % (Auto) 42.7 [place] % (Auto) 7.4 Eos % (Auto) 1.6 Baso % (Auto) 0.8 Neut # (Auto) 2.4 Lymph # (Auto) 2.2 [place] # (Auto) 0.4 Eos # (Auto) 0.1 Baso # (Auto) 0.0 Nucleated RBC % (a uto) 0 Nucleated RBCs # 0.0 Sodium 141 Potassium 3.4 L Chloride 113 H Carbon Dioxide 19 L Anion Gap 12.4 BUN 15 Creatinine 0.7 Glucose 118 H Estimat Average Gl ucose Hemoglobin A1c Calculated Osmolal ity 289 Calcium 7.8 L Phosphorus Magnesium Iron TIBC % Saturation Unsat Iron Binding Total Bilirubin 0.2 AST 17 ALT 14 Alkaline Phosphata se 43 Troponin I 6 Hour Troponin I Hi Sens Del Troponin T Baselin e Troponin T 120 Min [place] Delta Troponin T Total Protein 4.8 L D Albumin 3.1 L Globulin 1.7 Triglycerides Cholesterol LDL Cholesterol, C alc Total VLDL Cholest eliu HDL Cholesterol Cholesterol/HDL Ra krishan TSH 1.36 03/09/20 03/09/20 03/09/20 19:25 19:25 15:10 WBC RBC Hgb Hct MCV MCH MCHC RDW Plt Count MPV Neut % (Auto) Lymph % (Auto) [place] % (Auto) Eos % (Auto) Baso % (Auto) Neut # (Auto) Lymph # (Auto) [place] # (Auto) Eos # (Auto) Baso # (Auto) Nucleated RBC % (a uto) Nucleated RBCs # Sodium Potassium Chloride Carbon Dioxide Anion Gap BUN Creatinine Glucose Estimat Average Gl ucose Hemoglobin A1c Calculated Osmolal ity Calcium Phosphorus Magnesium Iron 71 TIBC 224 % Saturation 31.6 Unsat Iron Binding 153 Total Bilirubin AST ALT Alkaline Phosphata se Troponin I 6 Hour 29.02 H Troponin I Hi Sens Del 8.02 Troponin T Baselin e Troponin T 120 Min [place] 30.47 H Delta Troponin T 9.47 Total Protein Albumin Globulin Triglycerides Cholesterol LDL Cholesterol, C alc Total VLDL Cholest eliu HDL Cholesterol Cholesterol/HDL Ra krishan TSH 03/09/20 03/09/20 03/09/20 13:10 13:10 13:10 WBC 6.7 RBC 4.38 Hgb 13.4 Hct 41.4 MCV 94.5 MCH 30.6 MCHC 32.4 RDW 13.4 Plt Count 249 MPV 10.1 Neut % (Auto) 64.5 Lymph % (Auto) 27.0 [place] % (Auto) 7.2 Eos % (Auto) 0.7 Baso % (Auto) 0.3 Neut # (Auto) 4.3 Lymph # (Auto) 1.8 [place] # (Auto) 0.5 Eos # (Auto) 0.1 Baso # (Auto) 0.0 Nucleated RBC % (a uto) 0 Nucleated RBCs # 0.0 Sodium 142 Potassium 3.7 Chloride 106 Carbon Dioxide 22 Anion Gap 17.7 BUN 15 Creatinine 0.8 Glucose 90 Estimat Average Gl ucose Hemoglobin A1c Calculated Osmolal ity 290 Calcium 9.4 Phosphorus Magnesium Iron TIBC % Saturation Unsat Iron Binding Total Bilirubin 0.4 AST 27 ALT 24 Alkaline Phosphata se 59 Troponin I 6 Hour Troponin I Hi Sens Del Troponin T Baselin e 21 H Troponin T 120 Min [place] Delta Troponin T Total Protein 6.8 Albumin 4.1 Globulin 2.7 Triglycerides Cholesterol LDL Cholesterol, C alc Total VLDL Cholest eliu HDL Cholesterol Cholesterol/HDL Ra krishan TSH Vitals: Last Vital Signs Temp 98.6 F 03/10/20 12:00 Pulse 75 03/10/20 12:00 Resp 18 03/10/20 12:00 BP 110/71 03/10/20 12:00 Pulse Ox 95 03/10/20 12:00 Discharge Plan Discharge Patient Disposition: Home, Self-Care Condition: Stable Prescriptions: New magnesium oxide 400 mg (241.3 mg magnesium) Tablet 400 mg PO BID Qty: 60 RF: 0 metoprolol succinate 25 mg Tablet Extended Release 24 Hr 12.5 mg PO DAILY Qty: 30 RF: 0 Continued nitroglycerin [Nitrostat] 0.4 mg tablet, sublingual 0.4 mg SUBLINGUAL PRN RF: 0 furosemide [Lasix] 20 mg tablet 20 mg PO QAM PRN (Reason: edema) Qty: 90 RF: 1 potassium chloride 10 mEq tablet,ER particles/crystals 10 meq PO DAILY Qty: 90 RF: 1 tizanidine 4 mg tablet 4 mg PO BID PRN (Reason: muscle spasticity) Qty: 180 RF: 1 zonisamide 100 mg capsule 100 mg PO BID Qty: 180 RF: 1 Lipitor 20 mg tablet 20 mg PO DAILY RF: 0 zolpidem 10 mg tablet 10 mg PO BEDTIME RF: 0 Discharge Orders: Discharge Order (Routine); Ordered 03/10/20 Ordered By: Reyes Hodge Referrals: Gamaliel Smith, RESIDENTIAL DIRECT SUPPORT PROFESSIONAL-C [Primary Care Provider] - 7-10 days Angeles Sanchez MD [Physician] - 2 weeks Discharge Diet: Cardiac Discharge Activity: Resume usual activity Activity Restrictions/Additional Instructions: Follow up with Cardiology and EP as directed. Please maintain good hydration Discharge Attestations Time Spent in Discharge Care*: greater than 30 min Specific Discharge Activities: Specific discharge activities: educating patient, discussing with pcp/other providers, discussing with gearcase assembler/social workers/dc planners, documenting/other paperwork and evaluating patient/reviewing data Status at Discharge: Cognitive status at discharge: cognitively intact, Behavioral status at discharge: cooperative, Functional status at discharge: independent ambulation Overall status at discharge: patient is back to baseline Quality Metrics Clinical Quality Measures During this hospital stay, did patient experience: None Coding Level of Care Code Acute Ivory Polisher for [place] Diagnoses Supraventricular tachycardia I47.1 Syncope R55
== END 2020-03-10 15:12 | disposition home or self-care (01) ==
LOC: ER 13:05 → CSU 16:17
PROVIDERS: Family Medicine; Admitting Provider Student in an Organized Health Care Education/Training Program; PCP Nurse Practitioner; Visit Provider Student in an Organized Health Care Education/Training Program
DX: I47.1 Supraventricular tachycardia (principal); R55 Syncope and collapse; E78.2 Mixed hyperlipidemia; Z87.891 Personal history of nicotine dependence; D64.9 Anemia, unspecified; E86.0 Dehydration
CPT/HCPCS: 12345; 36415; 71045; 80053; 80061; 83036; 83540; 83550; 83735; 84100; 84443; 84484; 85025; 93005; 93306; 94664; 96360; 96361; 96372; 99283; 99285; G0378; J1650; J7030

== ENCOUNTER 2020-04-21 06:00 | Outpatient (RCR) | payer MEDICARE, SELFPAY | END 2020-05-10 23:59 | disposition home or self-care (01) | LOC: APT 06:00 | PROVIDERS: PCP Nurse Practitioner; Referring Provider Nurse Practitioner; Visit Provider Nurse Practitioner | DX: M41.9 Scoliosis, unspecified (principal); M54.9 Dorsalgia, unspecified | CPT/HCPCS: 97110; 97163 ==

== ENCOUNTER 2020-06-13 12:24 | Emergency (ER) | payer MEDICARE, SELFPAY ==
[2020-06-13 12:24] VITALS: BP 118/79; PULSE 85; RESP 16; TEMP 36.5; O2SAT 92; BMI 23.8
--- NOTE | 2020-06-13 12:29 | XRR_ITS ---
PROCEDURE INFORMATION: Exam: XR Chest, 1 View Exam date and time: 06/13/2020 12:31 PM Age: 75 years old Clinical indication: Chest pain; Additional info: Cp TECHNIQUE: Imaging protocol: XR of the chest Views: 1 view. COMPARISON: CR XR chest 1V portable [id number] 03/09/2020 1:18 PM FINDINGS: Lungs: There are findings of chronic obstructive pulmonary disease. There is no evidence of focal pulmonary consolidation. Pleural space: No pleural effusion is seen. Heart/Mediastinum: Unremarkable. No cardiomegaly. Bones/joints: Right shoulder arthroplasty. XR/XR chest 1V portable [id number] IMPRESSION: Click COPD impression no infiltrate or pleural effusion is seen.
--- NOTE | 2020-06-13 12:30 | ECG_ITS ---
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 Measurements Intervals [place] Rate: 82 P: 75 [place]: 195 QRS: 17 QRSD: 88 T: 64 QT: 366 QTc: 428 Interpretive Statements SINUS RHYTHM Compared to ECG 03/09/2020 18:44:33 No significant changes Electronically Signed On 06-13-2020 20:19:12 CDT by Josh Emerson M.D. [id number] f
--- NOTE | 2020-06-13 13:05 | ED_ITS ---
HPI - Arrhythmia/Palpitations General: Chief Complaint: Arrhythmia/Palpitations Stated Complaint: IRREGULAR HEARTRATE Time Seen by Provider: 06/13/20 12:26 Source: patient Mode of arrival: ambulatory Limitations: no limitations History of Present Illness: HPI narrative: 75-year-old female has a history of SVT states she started having severe palpitations earlier. She has since supposed to converted she states she feels improved here now but still feels anxious. Her heart rate here is in the 80s. She has some mild chest pains. She denies any shortness of breath. She states she had multiple ablations in the past for her SVT. Denies any worsening or improving factors. Associated symptoms: Deny nausea or vomiting Review of Systems Const: Denies: fever(s), chills, body aches or change in appetite Eyes: Denies: blurry vision or eye discomfort ENMT: Denies: throat pain or dental pain Card: Reports: palpitations Resp: Denies: dyspnea GI: Denies: abdominal pain, nausea, vomiting or diarrhea : Denies: dysuria Musc: Denies: neck pain or back pain Skin/Breast: Denies: rash Neuro: Denies: headache(s) Psych: Denies: depression Erasmo/Lymph: Denies: easy bruising All/Imm: Denies: urticaria PFSH ED PFSH: Medical History Hyperlipidemia, unspecified Insomnia Juvenile idiopathic scoliosis, thoracolumbar region Restless leg Surgical History History of colonoscopy 2003 History of cystocele History of hysterectomy 04/22/2018 with BSO History of knee surgery Bilateral scope History of repair of rectocele History of shoulder surgery 2002 right shoulder replacement with 2 rotater cuff History of tubal ligation 1976 Family History Mother Cancer mother Heart disease Father Cancer lung Sister Hypertension Social History Smoking and tobacco status: former smoker Smoking risk assessment/counseling performed?: No Alcohol intake: never Desire information about alcohol rehabilitation?: No Counseling given: No Desire information about substance/drug rehabilitation?: No Counseling given: No Caregiver/support person: No Lives independently: Yes Household members: spouse Housing: House Marital status: Number of children: 2 Current occupational status: unemployed History of recent travel: No Current gender identity: Female Physical Exam Const: COMMON NORMALS: no acute distress, patient oriented x3 and healthy appearing HENMT: COMMON NORMALS: normocephalic and atraumatic HEAD & SCALP: normocephalic and atraumatic Eye: COMMON NORMALS: Equal, round and reactive pupils present and EOMs intact bilaterally PUPIL: Yes Equal, round and reactive pupils present Neck/C-Spine: COMMON NORMALS: full ROM and supple Chest: COMMONS NORMALS: normal inspection of the chest and normal palpation of entire chest wall Resp: COMMON NORMALS: normal respiratory effort, No retractions, No use of accessory muscles and clear to auscultation bilaterally AUSCULTATION: clear to auscultation bilaterally Cardio: COMMON NORMALS: regular rate, regular rhythm and No murmurs present (Cardio) RATE: regular rate RHYTHM: regular rhythm GI: COMMON NORMALS: Normal to inspection, nondistended, normoactive bowel sounds present, Soft to palpation, non-tender and no masses PALPATION: Yes Soft to palpation Extremity: COMMON NORMALS: normal to inspection and full ROM Neuro: COMMON NORMALS: patient oriented x3, moves all extremities and no focal motor deficits Psych: COMMON NORMALS: mental status grossly normal, Normal thought process present and cooperative MOOD & AFFECT: Yes anxious THOUGHT PROCESS: Normal thought process present Skin: COMMON NORMALS: no rashes or lesions noted and no wounds GENERAL SKIN EXAM: no rashes or lesions noted Course Vital Signs: Vital signs: Vital Signs Temperature 97.7 F 06/13/20 12:24 Pulse Rate 85 06/13/20 12:24 Respiratory Rate 16 06/13/20 12:24 Blood Pressure 118/79 06/13/20 12:24 Pulse Oximetry 92 06/13/20 12:24 MDM - Arrhythmia/Palpitations MDM Narrative: Medical decision making narrative: Patient presents here with palpitations. From her history she was likely in SVT and converted. She feels much improved here. Her initial repeat troponins are negative and her heart rate is been normal. She has no signs of pulmonary embolism. Patient is stable for discharge is to follow-up with PCP and return if worsening. She understands and agrees to plan. Lab Data: Labs: Lab Results 06/13/20 06/13/20 06/13/20 Range/Units 13:40 13:40 13:40 WBC 5.6 (4.0-10.0) 10^3/ uL RBC 4.55 (4.1-5.3) 10^6/u L Hgb 13.8 (11.5-15.3) g/dL Hct 43.8 (37.0-47.0) % MCV 96.3 (81-99) fL MCH 30.3 (28.0-34.0) pg MCHC 31.5 (30.0-36.0) g/dL RDW 12.3 (12.1-15.1) % Plt Count 266 (130-400) 10^3/c mm MPV 9.7 (7.4-10.4) fL Neut % (Auto) 57.4 % Lymph % (Auto) 34.6 % [place] % (Auto) 5.7 % Eos % (Auto) 1.4 % Baso % (Auto) 0.7 % Neut # (Auto) 3.24 (1.8-7.7) 10^3/u L Lymph # (Auto) 2.0 (0.8-4.8) 10^3/u L [place] # (Auto) 0.3 (0.2-0.9) 10^3/u L Eos # (Auto) 0.1 (0.0-0.8) 10^3/u L Baso # (Auto) 0.0 (0.0-0.1) 10^3/u L Nucleated RBC % (a uto) 0 % Nucleated RBCs # 0.0 /100WBC Sodium 142 (136-145) mmol/L Potassium 3.9 (3.5-5.1) mmol/L Chloride 106 (98-107) mmol/L Carbon Dioxide 23 (22-29) mmol/L Anion Gap 16.9 (5-19) BUN 17 (8-23) mg/dL Creatinine 0.7 (0.5-0.9) mg/dL GFR Calculation Not Reportable Glucose 87 (65-115) mg/dL Calculated Osmolal ity 295 (285-295) mOsm/k g Calcium 9.7 (8.5-10.5) mg/dL Total Bilirubin 0.3 (0.15-1.2) mg/dL AST 16 (0-32) U/L ALT 19 (0-33) U/L Alkaline Phosphata se 57 (35-105) IU/L Troponin T Baselin e 11 H (0-10) ng/L Troponin T [address] [place] (0-10) ng/L Delta Troponin T (0-10) ABS# Total Protein 6.5 L (6.6-8.7) g/dL Albumin 4.4 (3.5-5.2) g/dL Globulin 2.1 (1.3-4.6) g/dL 06/13/20 Range/Units 15:24 WBC (4.0-10.0) 10^3/ uL RBC (4.1-5.3) 10^6/u L Hgb (11.5-15.3) g/dL Hct (37.0-47.0) % MCV (81-99) fL MCH (28.0-34.0) pg MCHC (30.0-36.0) g/dL RDW (12.1-15.1) % Plt Count (130-400) 10^3/c mm MPV (7.4-10.4) fL Neut % (Auto) % Lymph % (Auto) % [place] % (Auto) % Eos % (Auto) % Baso % (Auto) % Neut # (Auto) (1.8-7.7) 10^3/u L Lymph # (Auto) (0.8-4.8) 10^3/u L [place] # (Auto) (0.2-0.9) 10^3/u L Eos # (Auto) (0.0-0.8) 10^3/u L Baso # (Auto) (0.0-0.1) 10^3/u L Nucleated RBC % (a uto) % Nucleated RBCs # /100WBC Sodium (136-145) mmol/L Potassium (3.5-5.1) mmol/L Chloride (98-107) mmol/L Carbon Dioxide (22-29) mmol/L Anion Gap (5-19) BUN (8-23) mg/dL Creatinine (0.5-0.9) mg/dL GFR Calculation Glucose (65-115) mg/dL Calculated Osmolal ity (285-295) mOsm/k g Calcium (8.5-10.5) mg/dL Total Bilirubin (0.15-1.2) mg/dL AST (0-32) U/L ALT (0-33) U/L Alkaline Phosphata se (35-105) IU/L Troponin T Baselin e (0-10) ng/L Troponin T [address] [place] 11.53 H (0-10) ng/L Delta Troponin T 0.53 (0-10) ABS# Total Protein (6.6-8.7) g/dL Albumin (3.5-5.2) g/dL Globulin (1.3-4.6) g/dL Imaging Data^: CXR: Radiologist's impression: [address] [address] XRay Report Signed Patient: Hanna Murphy Unit #: [id number] : 1945 Age/Sex: 75 / F ADM Date: 06/13/20 Loc: ER Room/Bed: Attending Dr: Ordering Provider/Ordering MD: Master Wells MD Date of Service: 06/13/20 Procedure(s): XR chest 1V portable [id number] Accession Number(s): [id number] Report Number: [id number] PROCEDURE INFORMATION: Exam: XR Chest, 1 View Exam date and time: 06/13/2020 12:31 PM Age: 75 years old Clinical indication: Chest pain; Additional info: Cp TECHNIQUE: Imaging protocol: XR of the chest Views: 1 view. COMPARISON: CR XR chest 1V portable [id number] 03/09/2020 1:18 PM FINDINGS: Lungs: There are findings of chronic obstructive pulmonary disease. There is no evidence of focal pulmonary consolidation. Pleural space: No pleural effusion is seen. Heart/Mediastinum: Unremarkable. No cardiomegaly. Bones/joints: Right shoulder arthroplasty. XR/XR chest 1V portable [id number] IMPRESSION: Click COPD impression no infiltrate or pleural effusion is seen. EKG Data^: EKG 1: Attestation: I personally reviewed and interpreted this EKG as follows: EKG interpretation date: 06/13/20 EKG interpretation time: 12:41 Interpretation: nsr hr [address] or t wave abnormalities qrs 88 qtc 404 Other EKG comments: Chest X-Ray 06/13/20 12:29 IMPRESSION: Click COPD impression no infiltrate or pleural effusion is seen. EKG 2: Attestation: I personally reviewed and interpreted this EKG as follows: EKG interpretation date: 06/13/20 EKG interpretation time: 14:54 Interpretation: nsr hr [address] or t wave abnormalities qrs 86 qtc 414 Other EKG comments: Chest X-Ray 06/13/20 12:29 IMPRESSION: Click COPD impression no infiltrate or pleural effusion is seen. Discharge Plan Discharge Patient Disposition: Home Clinical Impression: Palpitations Condition: Stable Prescriptions: No Action nitroglycerin [Nitrostat] 0.4 mg tablet, sublingual 0.4 mg SUBLINGUAL PRN RF: 0 potassium chloride 10 mEq tablet,ER particles/crystals 10 meq PO DAILY Qty: 90 RF: 1 tizanidine 4 mg tablet 4 mg PO BID PRN (Reason: muscle spasticity) Qty: 180 RF: 1 atorvastatin [Lipitor] 20 mg tablet 20 mg PO DAILY RF: 0 zolpidem 10 mg tablet 10 mg PO BEDTIME RF: 0 Discharge Orders: Discharge Order (Routine); Ordered 06/13/20 Ordered By: Master Wells Referrals: Gamaliel Smith, SAND CONTROL WORKER-C [Primary Care Provider] - Angeles Sanchez MD [Physician] - Discharge Diet: Advance as tolerated Discharge Activity: Resume usual activity Patient Instructions: Palpitations (ED) Coding Level of Care Code ED Business Analytics Specialist for Chg Fwd Exam Comprehensive
[2020-06-13 13:06] VITALS: BP 125/75; PULSE 75; RESP 16; O2SAT 98
[2020-06-13] MEDS: LORazepam 2 mg/mL INJ 1 mL 0.5 MG IVP (13:41)
[2020-06-13 13:46] LABS: Basophils % 0.7 %; Eosinophils # 0.1 10^3/uL (0.0-0.8); Eosinophils % 1.4 %; Hematocrit 43.8 % (37.0-47.0); Hemoglobin 13.8 g/dL (11.5-15.3); Lymphocytes % 34.6 %; Mean Corpuscular HGB Conc 31.5 g/dL (30.0-36.0); Mean Corpuscular Hemoglobin 30.3 pg (28.0-34.0); Mean Corpuscular Volume 96.3 fL (81-99); Mean Platelet Volume 9.7 fL (7.4-10.4); Monocytes # 0.3 10^3/uL (0.2-0.9); Monocytes % 5.7 %; Neutrophils # 3.24 10^3/uL (1.8-7.7); Neutrophils % 57.4 %; Nucleated Red Blood Cells % 0 %; Platelet Count 266 10^3/cmm (130-400); Red Blood Count 4.55 10^6/uL (4.1-5.3); Red Cell Distribution Width 12.3 % (12.1-15.1); White Blood Count 5.6 10^3/uL (4.0-10.0)
[2020-06-13 14:06] LABS: Alanine Aminotransferase 19 U/L (0-33); Albumin Level 4.4 g/dL (3.5-5.2); Alkaline Phosphatase 57 IU/L (35-105); Anion Gap 16.9 (5-19); Aspartate Amino Transferase 16 U/L (0-32); Blood Urea Nitrogen 17 mg/dL (8-23); Calcium 9.7 mg/dL (8.5-10.5); Carbon Dioxide 23 mmol/L (22-29); Chloride 106 mmol/L (98-107); Globulin 2.1 g/dL (1.3-4.6); Glucose 87 mg/dL (65-115); Osmolality Calculated 295 mOsm/kg (285-295); Potassium 3.9 mmol/L (3.5-5.1); Sodium 142 mmol/L (136-145); Total Bilirubin 0.3 mg/dL (0.15-1.2); Total Protein 6.5 g/dL (6.6-8.7)
[2020-06-13 14:09] LABS: Troponin(5th) Baseline 11 ng/L (0-10)
--- NOTE | 2020-06-13 14:30 | ECG_ITS ---
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 Measurements Intervals [place] Rate: 77 P: 72 HI: 182 QRS: 8 QRSD: 86 T: 57 QT: 382 QTc: 434 Interpretive Statements SINUS RHYTHM WITH SINUS ARRHYTHMIA POSSIBLE RIGHT VENTRICULAR CONDUCTION DELAY [RSR (QR) IN V1/V2] Compared to ECG 06/13/2020 12:41:40 No significant changes Electronically Signed On 06-14-2020 17:42:37 CDT by Josh Emerson M.D. [id number] f
[2020-06-13 14:36] VITALS: BP 130/75; PULSE 75; RESP 15; O2SAT 98
[2020-06-13 15:52] LABS: Troponin 5 2HR 11.53 ng/L (0-10); Troponin 5 2HR Delta 0.53 ABS# (0-10)
[2020-06-13 16:24] VITALS: BP 145/78; PULSE 75; RESP 16
[2020-06-13 16:38] VITALS: BP 129/80; PULSE 75; RESP 14; O2SAT 97
== END 2020-06-13 16:39 | disposition home or self-care (01) ==
PROVIDERS: Emergency Provider Emergency Medicine; PCP Nurse Practitioner
DX: R00.2 Palpitations (principal); E78.5 Hyperlipidemia, unspecified; Z87.891 Personal history of nicotine dependence
CPT/HCPCS: 12345; 71045; 80053; 84484; 85025; 93005; 96374; 99283; 99284; J2060

== ENCOUNTER 2020-06-23 16:37 | Emergency (ER) | payer MEDICARE, SELFPAY ==
[2020-06-23 16:40] VITALS: BP 93/56; PULSE 75; RESP 18; TEMP 36.8; O2SAT 97; BMI 23.8
--- NOTE | 2020-06-23 17:42 | ECG_ITS ---
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 Measurements Intervals [place] Rate: 76 P: 59 AL: 184 QRS: -18 QRSD: 100 T: 52 QT: 392 QTc: 441 Interpretive Statements SINUS RHYTHM LOW QRS VOLTAGE IN PRECORDIAL LEADS [QRS DEFLECTION < 1.0 mV IN CHEST LEADS] POSSIBLE RIGHT VENTRICULAR CONDUCTION DELAY [RSR (QR) IN V1/V2] MINIMAL VOLTAGE CRITERIA FOR LVH, CONSIDER NORMAL VARIANT [MEETS CRITERIA IN ONE OF: R(aVL), S(V1), R(V5), R(V5/V6)+S(V1)] NONSPECIFIC T-WAVE ABNORMALITY Compared to ECG 06/13/2020 14:54:49 Low QRS voltage now present T-wave abnormality now present Sinus arrhythmia no longer present Electronically Signed On 06-24-2020 9:39:50 CDT by Josh Emerson M.D. [id number]
--- NOTE | 2020-06-23 17:51 | PC.NURSE ---
Patient reports feeling better now and rather leave because she recently had same episode with normal findings and feels she does not need further treatment or assessment at this time
--- NOTE | 2020-06-23 17:53 | W.ED.ARRPALP ---
HPI - Arrhythmia/Palpitations General: Chief Complaint: Arrhythmia/Palpitations Stated Complaint: CP Time Seen by Provider: 06/23/20 17:42 Source: patient Mode of arrival: ambulatory Limitations: no limitations History of Present Illness: HPI narrative: Pt is a 75 yo female with a hx of svt that states she has been having palpitations over the last hour. she states that this has resolved and she now feels back to baseline. She was seen for the same last week. denies any nv/. Denies any shortness of breath. denies having any pain with this. Associated symptoms: Deny nausea or vomiting Review of Systems Const: Denies: fever(s), chills, body aches or change in appetite Eyes: Denies: blurry vision or eye discomfort ENMT: Denies: throat pain or dental pain Card: Denies: chest pain Resp: Denies: dyspnea GI: Denies: abdominal pain, nausea, vomiting or diarrhea : Denies: dysuria Musc: Denies: neck pain or back pain Skin/Breast: Denies: rash Neuro: Denies: headache(s) Psych: Denies: depression Erasmo/Lymph: Denies: easy bruising All/Imm: Denies: urticaria PFSH ED PFSH: Medical History (Updated 06/23/20 @ 17:54 by Master Wells MD) Hyperlipidemia, unspecified Insomnia Juvenile idiopathic scoliosis, thoracolumbar region Restless leg Surgical History History of colonoscopy 2004 History of cystocele History of hysterectomy 04/22/2018 with BSO History of knee surgery Bilateral scope History of repair of rectocele History of shoulder surgery 2003 right shoulder replacement with 2 rotater cuff History of tubal ligation 1976 Family History Mother Cancer mother Heart disease Father Cancer lung Sister Hypertension Social History Smoking and tobacco status: former smoker Smoking risk assessment/counseling performed?: No Alcohol intake: never Desire information about alcohol rehabilitation?: No Counseling given: No Desire information about substance/drug rehabilitation?: No Counseling given: No Caregiver/support person: No Lives independently: Yes Household members: spouse Housing: House Marital status: Number of children: 2 Current occupational status: unemployed History of recent travel: No Current gender identity: Female Physical Exam Const: COMMON NORMALS: no acute distress, patient oriented x3 and healthy appearing HENMT: COMMON NORMALS: normocephalic and atraumatic HEAD & SCALP: normocephalic and atraumatic Eye: COMMON NORMALS: Equal, round and reactive pupils present and EOMs intact bilaterally PUPIL: Yes Equal, round and reactive pupils present Neck/C-Spine: COMMON NORMALS: full ROM and supple Chest: COMMONS NORMALS: normal inspection of the chest and normal palpation of entire chest wall Resp: COMMON NORMALS: normal respiratory effort, No retractions, No use of accessory muscles and clear to auscultation bilaterally AUSCULTATION: clear to auscultation bilaterally Cardio: COMMON NORMALS: regular rate, regular rhythm and No murmurs present (Cardio) RATE: regular rate RHYTHM: regular rhythm GI: COMMON NORMALS: Normal to inspection, nondistended, normoactive bowel sounds present, Soft to palpation, non-tender and no masses PALPATION: Yes Soft to palpation Extremity: COMMON NORMALS: normal to inspection and full ROM Neuro: COMMON NORMALS: patient oriented x3, moves all extremities and no focal motor deficits Psych: COMMON NORMALS: mental status grossly normal, Normal thought process present and cooperative THOUGHT PROCESS: Normal thought process present Skin: COMMON NORMALS: no rashes or lesions noted and no wounds GENERAL SKIN EXAM: no rashes or lesions noted Course Vital Signs: Vital signs: Vital Signs Temperature 98.3 F 06/23/20 16:40 Pulse Rate 75 06/23/20 16:40 Respiratory Rate 18 06/23/20 17:58 Blood Pressure 93/56 06/23/20 16:40 Pulse Oximetry 97 06/23/20 16:40 MDM - Arrhythmia/Palpitations MDM Narrative: Medical decision making narrative: Patient presents here with palpitations of since resolved. Patient after being here feels much improved and does not want to stay. 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 Some this is likely due to anxiety and may be having bouts of A. fib or SVT. She likely needs an outpatient Holter monitor. She is to return if symptoms return. She understands agrees to plan. Discharge Plan Discharge Patient Disposition: Home Clinical Impression: Palpitations Condition: Stable Prescriptions: No Action nitroglycerin [Nitrostat] 0.4 mg tablet, sublingual 0.4 mg SUBLINGUAL PRN RF: 0 potassium chloride 10 mEq tablet,ER particles/crystals 10 meq PO DAILY Qty: 90 RF: 1 tizanidine 4 mg tablet 4 mg PO BID PRN (Reason: muscle spasticity) Qty: 180 RF: 1 atorvastatin [Lipitor] 20 mg tablet 20 mg PO DAILY RF: 0 zolpidem 10 mg tablet 10 mg PO BEDTIME RF: 0 Discharge Orders: Discharge Order (Routine); Ordered 06/23/20 Ordered By: Master Wells Referrals: Gamaliel Smith, HEAT TREATER HELPER-C [Primary Care Provider] - Discharge Diet: Advance as tolerated Discharge Activity: Resume usual activity Patient Instructions: Palpitations (ED) Discharge Date/Time: 06/23/20 17:58 Coding Level of Care Code ED Electrical Assembly Technician for [facility] Fwd Exam Comprehensive
[2020-06-23 17:58] VITALS: RESP 18
== END 2020-06-23 17:58 | disposition home or self-care (01) ==
PROVIDERS: Emergency Provider Emergency Medicine; PCP Nurse Practitioner
DX: R00.2 Palpitations (principal); E78.5 Hyperlipidemia, unspecified; Z87.891 Personal history of nicotine dependence
CPT/HCPCS: 12345; 93005; 99282; 99283

== ENCOUNTER 2020-11-07 06:29 | Emergency (ER) | payer MEDICARE, SELFPAY ==
[2020-11-07 06:35] VITALS: BP 136/81; PULSE 66; RESP 18; TEMP 36.7; O2SAT 100; BMI 22.4
[2020-11-07 06:40] VITALS: BP 136/81; PULSE 64; RESP 18; O2SAT 100
[2020-11-07 06:44] VITALS: BP 136/81; PULSE 62; RESP 18; TEMP 36.7; O2SAT 100
[2020-11-07 06:49] VITALS: BP 136/81; PULSE 62; RESP 18; TEMP 36.7; O2SAT 100
--- NOTE | 2020-11-07 06:50 | PC.NURSE ---
Bite by owners dogs trying to break up a fight. Dogs are inside dogs. Needs a Tetanus
--- NOTE | 2020-11-07 07:03 | XRR_ITS ---
PROCEDURE INFORMATION: Exam: XR Right Hand Exam date and time: 11/07/2020 7:04 AM Age: 75 years old Clinical indication: Injury or trauma; Other: Dog bite; Middle finger; Right; Additional info: Dog bite RT hand TECHNIQUE: Imaging protocol: XR Right hand. Views: 3 or more views. COMPARISON: No relevant prior studies available. FINDINGS: Bones/joints: For purposes of this report, lateral refers to in the direction of the radius and medial refers to in the direction of the ulna. There is fragmentation of the styloid process of the ulna, consistent with chronic fracture. 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 Mild degenerative joint disease at the 1st interphalangeal joint, 2nd proximal interphalangeal joint, 2nd distal interphalangeal joint, 3rd proximal interphalangeal joint, 3rd distal interphalangeal joint, 4th proximal phalangeal joint, and 5th interphalangeal joint. Lateral subluxation of the 2nd distal interphalangeal joint. Comminuted acute fracture of the distal tuft of the distal phalanx of the 3rd digit. The major distal fragment is displaced is minimally (0.2 cm) displaced palmarly relative to the major proximal fragment. Soft tissues: No subcutaneous gas or radiopaque foreign body identified. XR/XR hand RT min 3V* [id number] IMPRESSION: 1. Comminuted acute fracture of the distal tuft of the distal phalanx of the 3rd digit. The major distal fragment is displaced is minimally (0.2 cm) displaced palmarly relative to the major proximal fragment. 2. Additional, nonemergent findings as above.
--- NOTE | 2020-11-07 07:13 | W.ED.ANIMALB ---
HPI - Animal Bite General: Chief Complaint: Animal Bite Stated Complaint: dog bite on r hand Time Seen by Provider: 11/07/20 07:02 Source: patient Mode of arrival: ambulatory Limitations: no limitations History of Present Illness: HPI narrative: 75-year-old female patient presents to the emergency department with dog bite to the right middle finger, third digit, she reports her dioxin/pitbull mix bit her last night around 8 PM. She reports last tetanus shot unknown. States dog is not up-to-date on vaccines. States dog is an inside dog. complaint: animal bite Animal: dog Description of animal: household pet and appeared well Mechanism: bite Pain description: sharp and constant Severity scale (1-10): 6 Context: animals fighting Associated symptoms: Reports bleeding and wound drainage; Deny chills, diaphoresis, fever(s) or headache(s) Treatments prior to arrival: wound dressing(s) Review of Systems General: Reports: 10 or more systems reviewed and unremarkable except in HPI and below Const: Denies: fever(s), chills or diaphoresis Eyes: Denies: blurry vision or eye redness ENMT: Denies: throat pain, dental pain or disequilibrium Card: Denies: chest pain, palpitations or irregular heart rhythm Resp: Denies: dyspnea, productive cough, non-productive cough or wheezing GI: Denies: abdominal pain, nausea, vomiting, heartburn, diarrhea or constipation : Denies: difficulty voiding or dysuria Musc: Reports: extremity pain (Third right digit, hand); Denies: neck pain or back pain Skin/Breast: Reports: erythema, skin tenderness and sores; Denies: rash or pruritus Neuro: Denies: headache(s), weakness in extremities or behavioral changes Psych: Denies: anxiety or depression Erasmo/Lymph: Denies: easy bruising PFSH ED PFSH: Medical History (Updated 11/07/20 @ 08:08 by HOLLY Marinelli) Hyperlipidemia, unspecified Insomnia Juvenile idiopathic scoliosis, thoracolumbar region Restless leg Surgical History History of colonoscopy 2004 History of cystocele History of hysterectomy 04/22/2018 with BSO History of knee surgery Bilateral scope History of repair of rectocele History of shoulder surgery 2003 right shoulder replacement with 2 rotater cuff History of tubal ligation 1976 Family History Mother Cancer mother Heart disease Father Cancer lung Sister Hypertension Social History Smoking and tobacco status: former smoker Smoking risk assessment/counseling performed?: No Alcohol intake: never Desire information about alcohol rehabilitation?: No Counseling given: No Desire information about substance/drug rehabilitation?: No Counseling given: No Caregiver/support person: No Lives independently: Yes Household members: spouse Housing: House Marital status: Number of children: 2 Current occupational status: unemployed History of recent travel: No Current gender identity: Female Physical Exam Const: COMMON NORMALS: no acute distress, patient oriented x3, healthy appearing and alert GENERAL APPEARANCE: cooperative, comfortable and well hydrated HENMT: COMMON NORMALS: normocephalic, Normal external nose present and moist oral mucous membranes HEAD & SCALP: normocephalic NOSE: Normal external nose present Eye: COMMON NORMALS: Equal, round and reactive pupils present and EOMs intact bilaterally GENERAL EYE: appearance normal, both eyes and all related structures PUPIL: Yes Equal, round and reactive pupils present Neck/C-Spine: COMMON NORMALS: full ROM and no lymphadenopathy GENERAL: Yes normal visual inspection and Yes trachea midline CERVICAL SPINE: Yes cervical ROM normal Lymph: LYMPHATIC: no lymphadenopathy noted Chest: COMMONS NORMALS: normal inspection of the chest Resp: COMMON NORMALS: normal respiratory effort and clear to auscultation bilaterally AUSCULTATION: clear to auscultation bilaterally Cardio: COMMON NORMALS: regular rhythm, S1 normal heart sound present, S2 normal heart sound present and Peripheral pulses 2+ throughout RHYTHM: regular rhythm HEART SOUNDS: S1 normal heart sound present and S2 normal heart sound present PERIPHERAL PULSES: Peripheral pulses 2+ throughout GI: COMMON NORMALS: Soft to palpation and non-tender INSPECTION: Yes normal to inspection PALPATION: Yes Soft to palpation : COMMON NORMALS: Yes no CVA tenderness BLADDER/KIDNEY EXAM: Yes no CVA tenderness Back/Pelvis: COMMON NORMALS: no CVA tenderness and thoracic and lumbar spine normal to inspection Extremity: COMMON NORMALS: normal to inspection, full ROM, capillary refill normal, no clubbing, cyanosis or edema, no calf tenderness and no pedal edema GENERAL: Yes normal exam except as noted OTHER: Third digit with full flexion extension but with pain, right hand Neuro: COMMON NORMALS: patient oriented x3 and no focal motor deficits SENSORIUM/ORIENTATION: Yes alert Psych: COMMON NORMALS: mental status grossly normal, Normal thought process present and cooperative ACTIVITY/MOTOR BEHAVIOR: Yes appropriate eye contact THOUGHT PROCESS: Normal thought process present Skin: COMMON NORMALS: no rashes or lesions noted, turgor normal, no petechiae and no mottling GENERAL SKIN EXAM: no rashes or lesions noted, elasticity normal and turgor normal TRAUMA: abrasion (Puncture wound, right third digit hand, volar) and laceration (To the right third digit, hand, nailbed, ) actively bleeding, motor nerve function intact and sensation intact Course Vital Signs: Vital signs: Vital Signs Temperature 98.1 F 11/07/20 06:49 Pulse Rate 87 11/07/20 08:18 Respiratory Rate 18 11/07/20 08:18 Blood Pressure 134/74 11/07/20 08:18 Pulse Oximetry 98 11/07/20 08:18 MDM - Animal Bite MDM Narrative: Medical decision making narrative: 75-year-old female patient presents to the emergency room with dog bite to the middle finger, right hand, she sustained open fracture with nail injury/puncture wound, dog was not up-to-date on rabies vaccine, her and her spouse agree for veterinary care tomorrow, dog can be observed for 10 days, social media intern referral to assist with appointment for orthopedic services as patient will need urgent follow-up in the next 2 days. I discussed high risk for infection due to open fracture, no repair completed secondary to animal bite. First dose of Augmentin completed here in the ED. Prescription hydrocodone provided by Dr. Adames. Differential Diagnosis: Differential diagnosis animal bite: Likely bite by animal Imaging Data^: Xray Ortho: Radiologist's impression: Third digit right hand with distal tuft fracture, radiology interpretation pending. Discharge Plan Discharge Patient Disposition: Home Clinical Impression: Dog bite of fingernail Qualifiers: Encounter type: initial encounter Qualified Code(s): S61.359A - Open bite of unspecified finger with damage to nail, initial encounter Open fracture of finger of right hand Qualifiers: Encounter type: initial encounter Finger: middle finger Phalanx: distal Fracture alignment: displaced Qualified Code(s): S62.632B - Displaced fracture of distal phalanx of right middle finger, initial encounter for open fracture Condition: Stable Prescriptions: New Augmentin 875-125 mg tablet 1 tab PO BID Qty: 20 RF: 0 hydrocodone-acetaminophen 5-325 mg tablet 1 tab PO Q4H PRN (Reason: pain) Qty: 7 RF: 0 No Action nitroglycerin [Nitrostat] 0.4 mg tablet, sublingual 0.4 mg SUBLINGUAL PRN RF: 0 aspirin 81 mg tablet,delayed release (DR/EC) 162 mg PO DAILY RF: 0 atorvastatin [Lipitor] 20 mg tablet 20 mg PO DAILY Qty: 90 RF: 1 potassium chloride 10 mEq tablet,ER particles/crystals 10 meq PO DAILY Qty: 90 RF: 1 tizanidine 4 mg tablet 4 mg PO BID PRN (Reason: muscle spasticity) Qty: 180 RF: 1 zolpidem 10 mg tablet 10 mg PO BEDTIME Qty: 10 RF: 0 flecainide 100 mg tablet 100 mg PO Q12H Qty: 60 RF: 3 Discharge Orders: Discharge ED (Routine); Ordered 11/07/20 Ordered By: Megan Martinez Referrals: Gamaliel Smith, SMALL KICK PRESS OPERATOR-C [Primary Care Provider] - Discharge Diet: Usual diet Discharge Activity: Limit activity as instructed Patient Instructions: Diphtheria/Pertussis/Tetanus Vaccine (DTwP) (Injection), Animal Bite (ED), Rabies (ED), Opioid Safety, Sling - Wearing Activity Restrictions/Additional Instructions: Keep the right hand elevated to help reduce swelling, cool compresses may help with pain. senior administrative services officer will contact you with follow-up appointment for orthopedic services, return to the emergency room immediately if you develop increased pain of the finger, redness streaking of the hand or fever/chills Keep the wound covered, may reapply dressing if dressing becomes saturated May continue Tylenol as needed for mild pain Coding Level of Care Code ED Director Medical for Arnol Fwpeterson Exam Comprehensive
[2020-11-07] MEDS: amoxicillin-clav 875-125 mg Tablet 1 TAB PO (07:33)
[2020-11-07] MEDS: HYDROcodone-acetaminophen 5-325 mg Tablet 1 TAB PO (07:33)
[2020-11-07] MEDS: tetanus-dipt-pertussis 0.5 mL SDV IM (07:34)
[2020-11-07 08:18] VITALS: BP 134/74; PULSE 87; RESP 18; O2SAT 98
--- NOTE | 2020-11-08 08:53 | DCPLANNER ---
locker room manager had message to schedule a follow up appointment for patient with ortho. locker room manager called the ortho clinic, spoke with Cassandra, gave clinic patients information. locker room manager was told that patients information would be printed and reviewed. Clinic will call patient with appointment information.
--- NOTE | 2020-11-10 14:05 | DCPLANNER ---
Patient has a follow up appointment scheduled for Monday, November 23, 2020 at 11:[address] Lucero at the ortho clinic. Clinic will call patient with appointment information.
--- NOTE | 2020-11-26 08:20 | DCPLANNER ---
Patient had a follow up appointment scheduled for 11.23.[address] Lucero at [facility] - patient did attend appointment.
== END 2020-11-07 08:22 | disposition home or self-care (01) ==
PROVIDERS: Emergency Provider Nurse Practitioner Family; PCP Nurse Practitioner
DX: S61.35 Open bite of finger with damage to nail (principal); S62.632B Displaced fracture of distal phalanx of right middle finger, initial encounter for open fracture; Z79.82 Long term (current) use of aspirin; W54.0XXA Bitten by dog, initial encounter; E78.5 Hyperlipidemia, unspecified; Z87.891 Personal history of nicotine dependence; Z23 Encounter for immunization
CPT/HCPCS: 73130; 90471; 90715; 99283; A6446

== ENCOUNTER → 2021-04-26 10:24 | Outpatient (BNVA) | payer MEDICARE, SELFPAY | PROVIDERS: PCP Nurse Practitioner; Visit Provider Nurse Practitioner | DX: E78.2 Mixed hyperlipidemia (principal); E55.9 Vitamin D deficiency, unspecified; E87.6 Hypokalemia; G47.00 Insomnia, unspecified; M41.115 Juvenile idiopathic scoliosis, thoracolumbar region | CPT/HCPCS: 80053; 80061; 82306; 82607; 84443; 85025 ==

== ENCOUNTER → 2021-10-03 10:34 | Outpatient (BNVA) | payer MEDICARE, SELFPAY | PROVIDERS: PCP Nurse Practitioner; Visit Provider Nurse Practitioner Family | DX: Z20.822 Contact with and (suspected) exposure to COVID-19 (principal) | CPT/HCPCS: 87635 ==

== ENCOUNTER → 2021-10-28 10:19 | Outpatient (BNVA) | payer MEDICARE, SELFPAY | PROVIDERS: Absent Provider Family Medicine; PCP Nurse Practitioner; Visit Provider Nurse Practitioner | DX: E78.2 Mixed hyperlipidemia (principal); E78.5 Hyperlipidemia, unspecified | CPT/HCPCS: 80053; 80061 ==

== ENCOUNTER → 2021-11-24 13:36 | Outpatient (BNVA) | payer MEDICARE, SELFPAY | PROVIDERS: PCP Nurse Practitioner; Visit Provider Internal Medicine Cardiovascular Disease | DX: I48.3 Typical atrial flutter (principal); I47.1 Supraventricular tachycardia; M41.115 Juvenile idiopathic scoliosis, thoracolumbar region | CPT/HCPCS: 99214 ==

== ENCOUNTER → 2022-02-16 15:35 | Outpatient (BNVA) | payer MEDICARE, SELFPAY | PROVIDERS: PCP Nurse Practitioner; Visit Provider Internal Medicine Cardiovascular Disease | DX: Z45.09 Encounter for adjustment and management of other cardiac device (principal) ==

== ENCOUNTER → 2022-06-05 16:30 | Outpatient (BNVA) | payer MEDICARE, SELFPAY | PROVIDERS: PCP Nurse Practitioner; Visit Provider Nurse Practitioner | DX: E78.2 Mixed hyperlipidemia (principal) | CPT/HCPCS: 80053; 80061; 84443 ==

== ENCOUNTER → 2022-09-14 09:31 | Outpatient (BNVA) | payer MEDICARE, SELFPAY | PROVIDERS: PCP Nurse Practitioner; Visit Provider Internal Medicine Cardiovascular Disease | DX: Z53.9 Procedure and treatment not carried out, unspecified reason (principal) ==

== ENCOUNTER → 2022-09-28 12:02 | Outpatient (BNVA) | payer MEDICARE, SELFPAY | PROVIDERS: PCP Nurse Practitioner; Visit Provider Nurse Practitioner | DX: E78.2 Mixed hyperlipidemia (principal) | CPT/HCPCS: 80053; 80061; 84443; 85025 ==

== ENCOUNTER 2022-10-13 10:27 | Outpatient (CLI) | payer MEDICARE, SELFPAY ==
--- NOTE | 2022-10-13 10:34 | MM_ITS ---
WS: [id number] BILATERAL SCREENING DIGITAL TOMOSYNTHESIS MAMMOGRAM WITH CAD HISTORY: Screening exam. COMPARISON: 12/11/2016 and 11/23/2015 Bilateral CC and MLO views with tomosynthesis and synthetic mammography submitted. Computer aided det ection analyzed. Cardiac loop recorder projects over the mid LEFT breast. Breast composition: There are scattered areas of fibroglandular density. No suspicious masses, microc alcifications or architectural distortion. MM/[place] [id number] IMPRESSION: BI-RADS: 2-Benign FOLLOW UP: 1 Year Follow-up
== END 2022-10-13 10:28 | disposition home or self-care (01) ==
LOC: RAD 10:27
PROVIDERS: PCP Nurse Practitioner; Visit Provider Nurse Practitioner
DX: Z12.31 Encounter for screening mammogram for malignant neoplasm of breast (principal)
CPT/HCPCS: 77063; 77067

== ENCOUNTER → 2022-10-31 08:04 | Outpatient (BNVA) | payer MEDICARE, SELFPAY | PROVIDERS: PCP Nurse Practitioner; Visit Provider Surgery | DX: Z86.010 Personal history of colon polyps (principal); Z12.11 Encounter for screening for malignant neoplasm of colon | CPT/HCPCS: 99203 ==

== ENCOUNTER 2022-11-15 07:33 | Day surgery (SDC) | payer MEDICARE, SELFPAY ==
[2022-11-13 12:17] VITALS: BMI 22.3
[2022-11-15 07:55] VITALS: BP 137/75; PULSE 57; RESP 18; TEMP 36.1; O2SAT 98
[2022-11-15] MEDS: sodium chloride 0.9% 1,000 ML 30 ML IV (07:57)
--- NOTE | 2022-11-15 08:13 | ANES.PREANE2 ---
Pre-Anesthetic Assessment Height/Weight: Height 1.55 m Weight 53.524 kg Temp Pulse Resp BP Pulse Ox O2 Del Method 97 F L 57 L 18 137/75 98 11/15/22 07:55 11/15/22 07:55 11/15/22 07:55 11/15/22 07:55 11/15/22 07:55 11/15/22 07:55 Preop Diagnosis: screening Operation Date: 11/15/22 09:00 Proposed Procedures p 91637 Colon z86.010(Not Applicable) - Ge Lomeli, DO Was Beta Jaciel taken within 24 hours: N/A Was Clonidine taken within 24 hours: N/A Last intake: Intake Last Liquid Date 11/14/22 Last Liquid Time 22:00 Last Solid Date 11/13/22 Last Solid Time 18:00 Social No alcohol chewing tobacco - Exam alert, oriented x 3, clear to auscultation bilaterally and regular rate & rhythm Airway Submandibular: within normal limits Cervical ROM: within normal limits Mallampati: Class I Dentition: full Comments: Comments: removed History/ROS No significant history except as noted Pulmonary None reported CV/HEM Atrial Fibrillation and Arrythmia Aflutter, controlled on flecanide. Asymptomatic. Denies SOB/CP, hasn't used sublingual nitro in years. Saw crdiology 6 months ago. None reported Hepatic None reported GI None reported Metabolic None reported Musc/skel Lower Back Pain Neuropsych Anxiety Anesthetic Plan ASA status: 3 Anesthesia: Anesthesia Evaluation and MAC Risk of > 500 ml blood loss (7ml/kg in children): Yes, adequate IV access and fluids planned Medications/Allergies Home Medications Medication Instructions Recorded Confirmed Last Taken Type nitroglycerin 0.4 mg sublingual 0.4 mg sublingual PRN 09/30/19 11/13/22 03/09/20 History tablet (Nitrostat) tizanidine 4 mg tablet 4 mg PO BID PRN muscle spasticity 11/24/21 11/13/22 11/14/22 History flecainide 100 mg tablet 100 mg PO Q12H #60 tabs 05/25/22 11/13/22 11/15/22 05:00 Rx atorvastatin 20 mg tablet (Lipitor) 20 mg PO DAILY #90 tabs 09/28/22 11/13/22 11/14/22 Rx potassium chloride 10 mEq 10 meq PO DAILY #90 tabs 09/28/22 11/13/22 11/14/22 Rx tablet,extended release(part/cryst) zolpidem 10 mg tablet 10 mg PO BEDTIME #90 tabs 10/01/22 11/13/22 11/14/22 Rx aspirin 325 mg tablet 325 mg PO DAILY 10/31/22 11/13/22 11/13/22 History Allergies Allergy/AdvReac Type Severity Reaction Status Date / Time doxycycline Allergy ALGY-Rash Verified 11/13/22 12:14 trazodone Allergy feels weird Verified 11/13/22 12:14 Current Medications Generic Name Dose Route Start Last Admin Trade Name Freq PRN Reason Stop Dose Admin Sodium Chloride 1,000 mls @ 30 mls/hr 11/15/22 07:45 11/15/22 07:57 Sodium Chloride 0.9% IV 11/16/22 07:44 30 mls/hr .Q24H NOA Administration PFSH Anesthesia Medical History GERD (gastroesophageal reflux disease) Hyperlipidemia, unspecified Insomnia Juvenile idiopathic scoliosis, thoracolumbar region Restless leg Surgical History History of colonoscopy 2004 History of cystocele History of hysterectomy 04/22/2018 with BSO History of knee surgery Bilateral scope History of repair of rectocele History of shoulder surgery 2003 right shoulder replacement with 2 rotater cuff History of tubal ligation 1977 Family History Mother Cancer mother Heart disease Father Cancer lung Sister Hypertension Social History Smoking and tobacco status: former smoker Second hand smoke exposure: No Smoking risk assessment/counseling performed?: No Alcohol intake: current Alcohol intake frequency: 0-2 Drinks per Day Alcohol type: wine Desire information about alcohol rehabilitation?: No Counseling given: No Desire information about substance/drug rehabilitation?: No Counseling given: No Adopted: No Caregiver/support person: No Lives independently: Yes Household members: spouse Housing: House Marital status: Number of children: 2 service: No Current occupational status: unemployed Current gender identity: Female Data Anesthesia Cardiac Studies: Echocardiogram Ultrasound 03/10/20
--- NOTE | 2022-11-15 09:22 | W.PM.OPSUD ---
Surgery/Procedure H&P Update DATE OF PROCEDURE: November 15, 2022 DATE H&P PERFORMED: 10/31/22 H&P UPDATE INFORMATION: I have reviewed H&P completed within last 30 days, I have examined patient prior to procedure and No changes to prior documentation PREOP DIAGNOSIS: screening PLANNED PROCEDURE: Operation Date: 11/15/22 09:00 Proposed Procedures p [id number] Colon z86.010(Not Applicable) - Ge Lomeli DO
[2022-11-15 09:50] VITALS: BP 113/73; PULSE 86; RESP 16; TEMP 36.2; O2SAT 100
[2022-11-15 10:02] VITALS: BP 134/97; PULSE 87; RESP 16; O2SAT 100
--- NOTE | 2022-11-15 14:29 | ANE.PACU2 ---
Inpatient post-anesthesia follow up: Airway intact: Yes Vital signs: Temperature 97.2 F Pulse Rate 87 Respiratory Rate 16 Blood Pressure 134/97 Pulse Oximetry 100 Oxygen Delivery Me thod Room Air Oxygen Flow Rate Fraction of Inspir ed Oxygen Hydration adequate: Yes Nausea and vomiting: No Pain level: 1 Mental status: Baseline
== END 2022-11-15 10:25 | disposition home or self-care (01) ==
PROVIDERS: PCP Nurse Practitioner; Visit Provider Surgery
PROC: 0DJD8ZZ Inspection of Lower Intestinal Tract, Via Natural or Artificial Opening Endoscopic (ICD-10-PCS; CPT 45378; principal; 2022-11-15 09:00)
DX: Z12.11 Encounter for screening for malignant neoplasm of colon (principal); K21.9 Gastro-esophageal reflux disease without esophagitis; E78.5 Hyperlipidemia, unspecified; I48.91 Unspecified atrial fibrillation; Z79.82 Long term (current) use of aspirin; Z86.010 Personal history of colon polyps; Z87.891 Personal history of nicotine dependence; Z88.1 Allergy status to other antibiotic agents
CPT/HCPCS: G0121; J2704; J7030

== ENCOUNTER → 2023-03-22 12:05 | Outpatient (BNVA) | payer MEDICARE, SELFPAY | PROVIDERS: PCP Nurse Practitioner; Visit Provider Nurse Practitioner | DX: E78.2 Mixed hyperlipidemia (principal); E87.6 Hypokalemia; M41.115 Juvenile idiopathic scoliosis, thoracolumbar region; G47.00 Insomnia, unspecified; E78.5 Hyperlipidemia, unspecified | CPT/HCPCS: 80053; 80061; 85025 ==

== ENCOUNTER → 2023-07-03 11:01 | Outpatient (BNVA) | payer MEDICARE, SELFPAY | PROVIDERS: PCP Nurse Practitioner; Visit Provider Internal Medicine Cardiovascular Disease | DX: I48.3 Typical atrial flutter (principal); I47.10 Supraventricular tachycardia, unspecified; I10 Essential (primary) hypertension; E78.2 Mixed hyperlipidemia; K21.9 Gastro-esophageal reflux disease without esophagitis; Z87.891 Personal history of nicotine dependence | CPT/HCPCS: 99214 ==

== ENCOUNTER → 2023-08-30 13:15 | Outpatient (BNVA) | payer MEDICARE, SELFPAY | PROVIDERS: PCP Nurse Practitioner; Visit Provider Nurse Practitioner Family | DX: L57.0 Actinic keratosis (principal); L82.0 Inflamed seborrheic keratosis; L57.8 Other skin changes due to chronic exposure to nonionizing radiation; D22.5 Melanocytic nevi of trunk; L81.4 Other melanin hyperpigmentation | CPT/HCPCS: 17000; 17110; 99213 ==

== ENCOUNTER 2023-11-12 09:14 | Outpatient (CLI) | payer MEDICARE, SELFPAY ==
--- NOTE | 2023-11-12 09:27 | MM_ITS ---
WS: [id number] BILATERAL SCREENING DIGITAL TOMOSYNTHESIS MAMMOGRAM WITH CAD HISTORY: SCREENING COMPARISON: 10/13/2022, 12/11/2016 Bilateral CC and MLO views with tomosynthesis and synthetic mammography submitted. Computer aided det ection analyzed. Breast composition: There are scattered areas of fibroglandular density. No suspicious masses, microc alcifications or architectural distortion. Cardiac loop recorder over the central LEFT breast. IMPRESSION: MM/[place] [id number] BI-RADS: 2-Benign FOLLOW UP: 1 Year Follow-up
== END 2023-11-12 09:15 | disposition home or self-care (01) ==
PROVIDERS: PCP Nurse Practitioner; Visit Provider Nurse Practitioner
DX: Z12.31 Encounter for screening mammogram for malignant neoplasm of breast (principal)
CPT/HCPCS: 77063; 77067

== ENCOUNTER → 2023-12-06 13:44 | Outpatient (BNVA) | payer MEDICARE, SELFPAY | PROVIDERS: PCP Nurse Practitioner; Visit Provider Nurse Practitioner | DX: E78.2 Mixed hyperlipidemia (principal); E87.6 Hypokalemia; M41.115 Juvenile idiopathic scoliosis, thoracolumbar region; G47.00 Insomnia, unspecified | CPT/HCPCS: 80053; 80061; 84443 ==

== ENCOUNTER → 2024-04-09 10:18 | Outpatient (BNVA) | payer MEDICARE, SELFPAY | PROVIDERS: PCP Nurse Practitioner; Visit Provider Nurse Practitioner | DX: E78.2 Mixed hyperlipidemia (principal) | CPT/HCPCS: 80053; 80061; 82607 ==

== ENCOUNTER 2024-05-21 14:27 | Outpatient (CLI) | payer MEDICARE, SELFPAY ==
--- NOTE | 2024-05-21 14:30 | CTR_ITS ---
PROCEDURE INFORMATION: Exam: CT Neck With Contrast Exam date and time: 05/21/2024 2:51 PM Age: 79 years old Clinical indication: Mass, lump, or swelling in neck; Right; Patient HX: Localized swelling/mass x 2 months on RT side of neck. Bb placed; Additional info: R22.1 - localized swelling, mass and lump, neck TECHNIQUE: Imaging protocol: Computed tomography of the neck with contrast. Radiation optimization: All CT scans at this facility use at least one of these dose optimization techniques: automated exposure control; mA and/or kV adjustment per patient size (includes targeted exams where dose is matched to clinical indication); or iterative reconstruction. Contrast material: OMNI 350; Contrast volume: 100 ml; Contrast route: INTRAVENOUS (IV); COMPARISON: MR cervical spin wo con* [id number] 03/01/2018 4:03 PM RADIATION DOSE METRICS: Total DLP (mGy-cm): 166.33 FINDINGS: Salivary glands: Normal. Glands are normal in size. Skin marker over right side of the neck overlies right normal-appearing submandibular gland. Oral cavity: Unremarkable. Pharynx: Nasopharynx, oropharynx and hypopharynx are unremarkable. Prevertebral and retropharyngeal spaces: Unremarkable. Larynx: Unremarkable. Epiglottis is normal. Thyroid: No obvious nodules or cysts. Trachea: Visualized upper trachea is unremarkable. Lungs: Biapical lung scarring Lymph nodes: No cervical lymphadenopathy. Bones/joints: Degenerative changes of the cervical spine. Soft tissues: Subcutaneous soft tissues are unremarkable. CT/CT neck w con* [id number] IMPRESSION: Right neck skin marker overlies the right normal-appearing submandibular gland. No suspicious soft tissue neck mass or fluid collection is identified. Recommend clinical correlation and follow-up imaging as clinically warranted.
[2024-05-21] MEDS: iohexol 350 mg/mL 500 mL Btl (per mL) IV (15:01)
== END 2024-05-21 14:28 | disposition home or self-care (01) ==
LOC: RAD 14:27
PROVIDERS: PCP Nurse Practitioner; Visit Provider Nurse Practitioner
DX: R22.1 Localized swelling, mass and lump, neck (principal)
CPT/HCPCS: 70491

== ENCOUNTER → 2024-09-24 10:19 | Outpatient (BNVA) | payer MEDICARE, SELFPAY | PROVIDERS: PCP Nurse Practitioner; Visit Provider Nurse Practitioner | DX: E78.2 Mixed hyperlipidemia (principal) | CPT/HCPCS: 80053; 80061 ==

== ENCOUNTER → 2024-10-22 11:42 | Outpatient (BNVA) | payer MEDICARE, SELFPAY | PROVIDERS: PCP Nurse Practitioner; Visit Provider Internal Medicine Cardiovascular Disease | DX: I47.10 Supraventricular tachycardia, unspecified (principal); E78.2 Mixed hyperlipidemia; I48.3 Typical atrial flutter; K21.9 Gastro-esophageal reflux disease without esophagitis; Z95.818 Presence of other cardiac implants and grafts; Z79.899 Other long term (current) drug therapy; Z87.891 Personal history of nicotine dependence | CPT/HCPCS: 99214 ==

== ENCOUNTER 2024-11-18 09:01 | Outpatient (CLI) | payer MEDICARE, SELFPAY ==
--- NOTE | 2024-11-18 09:00 | MM_ITS ---
WS: [id number] BILATERAL 3D TOMOSYNTHESIS DIGITAL SCREENING MAMMOGRAPHY WITH CAD CLINICAL INFORMATION: Z12.31 - Encounter for screening mammogram for malignant ... HISTORY: Screening mammogram. No current complaints. COMPARISON: 11/12/2023 TECHNIQUE: Bilateral CC and MLO views. FINDINGS: Scattered fibroglandular densities bilaterally. No suspicious focal mass, asymmetry, calcifications, or architectural distortion. No evidence of malignancy. Vascular calcification. Loop recorder LEFT breast MM/MM scr tomosynthesis [id number] IMPRESSION: DENSITY: There are scattered areas of fibroglandular density. BI-RADS: 2 - Benign. FOLLOW UP: 1 Year Follow-up Recommend return to annual screening mammography.
== END 2024-11-18 09:02 | disposition home or self-care (01) ==
LOC: MOBLMAM 09:03
PROVIDERS: PCP Nurse Practitioner; Visit Provider Nurse Practitioner
DX: Z12.31 Encounter for screening mammogram for malignant neoplasm of breast (principal); R92.323 Mammographic fibroglandular density, bilateral breasts; R92.1 Mammographic calcification found on diagnostic imaging of breast; Z96.89 Presence of other specified functional implants
CPT/HCPCS: 77063; 77067

== ENCOUNTER → 2025-01-26 14:17 | Outpatient (BNVA) | payer MEDICARE, SELFPAY | PROVIDERS: PCP Nurse Practitioner; Visit Provider Nurse Practitioner Family | DX: L57.8 Other skin changes due to chronic exposure to nonionizing radiation (principal); L81.4 Other melanin hyperpigmentation; D22.4 Melanocytic nevi of scalp and neck; L57.0 Actinic keratosis | CPT/HCPCS: 17000; 99213 ==

== ENCOUNTER → 2025-02-04 11:40 | Outpatient (BNVA) | payer MEDICARE, SELFPAY | PROVIDERS: PCP Nurse Practitioner; Visit Provider Nurse Practitioner | DX: E78.2 Mixed hyperlipidemia (principal); E55.9 Vitamin D deficiency, unspecified | CPT/HCPCS: 80053; 80061; 82306; 82607; 84443 ==

== ENCOUNTER 2025-03-28 14:19 | Emergency (ER) | payer MEDICARE, SELFPAY ==
[2025-03-28 14:25] VITALS: BP 114/71; PULSE 88; RESP 16; TEMP 36.6; O2SAT 95
--- OUTSIDE RECORDS SUMMARY | 2025-03-28 14:27 | XMS_ITS | Encounter Summary ---
Author Organization [facility] Address [address] [place]: Epic Prelude ADT [place] MYERS [address] Care Team Providers Care Steward/Stewardess Third Class Name Role Phone Unavailable Primary Care Provider Unavailabl e Encounter Details Date Type Department Care Team (Late st Contact Info) Description 03/28/2000 Outpatient Historical Orlin Potter MD [address] [place], [place] [id number] Social History Tobacco Use Types Packs/Day Years Used Date Smoking Tobacco: Never Assessed Comments Unknown Sex and Gender Information Value Date Recorded Sex Assigned at Not on file Legal Sex Female 5:36 AM DEVOPS Gender Identity Not on file Sexual Orientation Not on file documented as of this encounter Plan of Treatment Not on file documented as of this encounter Visit Diagnoses Not on filedocumented in this encounter
--- OUTSIDE RECORDS SUMMARY | 2025-03-28 14:27 | XMS_ITS | Clinical Summary ---
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
--- OUTSIDE RECORDS SUMMARY | 2025-03-28 14:27 | XMS_ITS | Encounter Summary ---
Author Organization [facility] Address [address] [place] [address] Care Team Providers Care Dropper [employer] Name Role Phone Unavailable Primary Care Provider Unavailabl e Encounter Details Date Type Department Care Team (Late st Contact Info) Description 01/12/2006 Outpatient Historical [facility] D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
[2025-03-28] MEDS: tetanus-dipt-pertussis 0.5 mL SDV IM (14:49)
[2025-03-28] MEDS: lidocaine-epi 2% 20 mL INJ INJECTION (14:50)
[2025-03-28] MEDS: HYDROcodone-acetaminophen 5-325 mg Tablet 1 TAB PO (15:03)
--- NOTE | 2025-03-28 15:27 | ED_ITS ---
Documented by User: JANIE Painting 03/28/25 15:50 HPI - Wound/Laceration General: Chief Complaint: Wound/Laceration Stated Complaint: left leg injury Time Seen by Provider: 03/28/25 14:36 Source: patient Mode of arrival: ambulatory Limitations: no limitations History of Present Illness: Patient is an 79-year-old female who presents the emergency department with a laceration to her left anterior san. She states that she was hopping a fence and cut it on a wire, this caused the shear type V shaped laceration. No blood thinner use, and blood is controlled prehospital with direct pressure. She has good strength and range of motion distally, no neurovascular symptoms reported. No contamination is obvious at this time, she states that her tetanus is not up -to-date. She is noting a stinging pain associated with the cut, has been ambulatory since this occurred with no head injury or other injuries to report. Onset (ago): hour(s) Extremity Location: Left: lower leg Place: outdoors Patient tetanus UTD: No Context: accidental Associated symptoms: Reports no associated symptoms; Denies chills, fever(s), nausea or vomiting Treatments prior to arrival: bandage Related Data Home Medications ?Medication ?Instructions ?Recorded ?Confirmed nitroglycerin 0.4 mg sublingual 0.4 mg sublingual PRN 09/30/19 02/04/25 tablet (Nitrostat) aspirin 325 mg tablet 325 mg PO DAILY 10/31/22 Held on 11/15/22. Instructions: Resume on 11/18/22. Previous Rx's ?Medication ?Instructions ?Recorded flecainide 100 mg tablet 100 mg PO Q12H #30 tabs 09/11 11/04 atorvastatin 20 mg tablet (Lipitor) 20 mg PO DAILY #90 tabs 02/04/25 potassium chloride 10 mEq 10 meq PO DAILY #90 tabs tablet,extended release(part/cryst) tizanidine 4 mg tablet 4 mg PO BID PRN muscle spast icity 02/04/25 #180 tabs zolpidem 10 mg tablet 10 mg PO BEDTIME #90 tabs cephalexin 500 mg capsule 500 mg PO Q8H 5 days #15 cap s 03/28/25 hydrocodone 5 mg-acetaminophen 325 1 tab PO DAILY PRN pain #10 tabs 03/28/25 mg tablet Allergies Allergy/AdvReac Type Severity Reaction Status Date / Time doxycycline Allergy ALGY-Rash Verified 03/28/25 14:28 trazodone Allergy feels weird Verified 03/28/25 14:28 Review of Systems General: Reports: 10 or more systems reviewed and unremarkable except in HPI and below Const: Denies: fever(s) or chills Card: Denies: chest pain Resp: Denies: dyspnea GI: Denies: abdominal pain, nausea, vomiting or diarrhea Musc: Denies: extremity pain or joint pain Skin/Breast: Reports: skin pain and new lesions; Denies: rash or skin tenderness Neuro: Denies: headache(s) PFSH ED PFSH: Medical History GERD (gastroesophageal reflux disease) Juvenile idiopathic scoliosis, thoracolumbar region Insomnia Hyperlipidemia, unspecified Restless leg Surgical History History of cystocele History of repair of rectocele History of colonoscopy 2003 History of hysterectomy 04/22/2018 with BSO History of shoulder surgery 2002 right shoulder replacement with 2 rotater cuff History of knee surgery Bilateral scope History of tubal ligation 1976 Family History Mother Cancer mother Heart disease Father Cancer lung Sister Hypertension Social History Smoking and tobacco/nicotine status: former use of tobacco/nicotine Second hand smoke exposure: No Alcohol intake: current Alcohol intake frequency: 0-2 Drinks per Day Alcohol type: wine Substance/Drug Use: never Adopted: No Caregiver/support person: No Lives independently: Yes Household members: spouse Housing: House Marital status: Number of children: 2 service: No Current occupational status: unemployed Do you think of yourself as: Straight/Heterosexual Current gender identity: Female Physical Exam Const: COMMON NORMALS: no acute distress, average body habitus, patient oriented x3, no limitations and alert ORIENTATION/CONSCIOUSNESS: Yes awake HENMT: COMMON NORMALS: normocephalic and atraumatic HEAD & SCALP: normocephalic and atraumatic Eye: COMMON NORMALS: Equal, round and reactive pupils present PUPIL: Yes Equal, round and reactive pupils present Neck/C-Spine: COMMON NORMALS: full ROM Resp: COMMON NORMALS: normal respiratory effort, No retractions and No use of accessory muscles Cardio: COMMON NORMALS: regular rate and regular rhythm RATE: regular rate RHYTHM: regular rhythm Extremity: COMMON NORMALS: full ROM, no joint enlargement, no clubbing, cyanosis or edema, no calf tenderness and no pedal edema OTHER: Intact plantarflexion and dorsiflexion of the left foot, no strength or neurodeficits. Neuro: COMMON NORMALS: patient oriented x3, moves all extremities, no focal motor deficits and no sensory deficits noted SENSORIUM/ORIENTATION: Yes alert Skin: NARRATIVE SKIN EXAM: Large, 8 cm V-shaped, shear type laceration to the left anterior san with adiposity protruding from the medial aspect, minimal evidence of underlying fascia with no laceration or injury present. No active bleeding or contamination/foreign body. Procedures Laceration Laceration 1: Site: lower extremity Side (If applicable): left Size (cm): 8 Description: flap and other (Shear) Depth: simple, single layer (Protruding adiposity) Local Anesthetic: lidocaine 2% Amount of anesthesia used (mL): 15 Pre-repair: wound explored, irrigated extensively, deep structures intact and wound margins revised Skin layer closed with: nylon Size (cm): 4-0 Number of sutures: 12 Technique: simple, interrupted and horizontal mattress (1, at the tip to avoid hyperemia) Course Vital Signs: Vital signs: Vital Signs Temperature 97.9 F 03/28/25 14:25 Pulse Rate 88 03/28/25 14:25 Respiratory Rate 16 03/28/25 14:25 Blood Pressure 114/71 03/28/25 14:25 Pulse Oximetry 95 03/28/25 14:25 Oxygen Delivery Me thod Room Air 03/28/25 14:25 MDM - Wound/Laceration Medical Decision Making This was a complex laceration presenting to the emergency department requiring procedural closure Emergency Department. Wound margins somewhat revised with excision of protruding adiposity, overall the skin was very thin so loose closure utilized for reapproximation. Overall 12 sutures were placed, 1 horizontal mattress at the tip to avoid hyperemia of the wound. This wound was not contaminated and bleeding had been controlled prehospital. She is informed to have the sutures out in 2 weeks and to do appropriate dressing changes every day, prior to discharge she has petroleum gauze placed with a nonadherent dressing and Coban and informed to change this in 24 to 48 hours. Thorough irrigation of the wound with 500 cc normal saline, overall the procedure tolerated well and she did note improvement of her symptoms after lidocaine with epi and [place] given here. For prophylaxis and due to the extent of the wound, prophylactic Keflex for few days as prescribed as well as a few [place] pills for home. Other conservative measures I discussed and she does have a primary care provider that she can follow-up with for reevaluation and suture removal. Discussed with her signs and symptoms of infection to watch for and monitor, patient and family did endorse understanding and she is noted to be ambulatory out of the emergency department. I did feel that x-ray of the extremity not necessary at this time with no concern of foreign body or any bony injury. No radiology studies performed this visit Discharge Plan Discharge Patient Disposition: Home Clinical Impression: Laceration of left leg Qualifiers: Encounter type: initial encounter Qualified Code(s): S81.812A - Laceration without foreign body, left lower leg, initial encounter Condition: Stable Prescriptions: New cephalexin 500 mg capsule 500 mg PO Q8H 5 Days Qty: 15 0RF hydrocodone-acetaminophen 5-325 mg tablet 1 tab PO DAILY PRN (Reason: pain) Qty: 10 0RF No Action nitroglycerin [Nitrostat] 0.4 mg tablet, sublingual 0.4 mg SUBLINGUAL PRN zolpidem 10 mg tablet 10 mg PO BEDTIME Qty: 90 1RF tizanidine 4 mg tablet 4 mg PO BID PRN (Reason: muscle spasticity) Qty: 180 1RF potassium chloride 10 mEq tablet,ER particles/crystals 10 meq PO DAILY Qty: 90 1RF atorvastatin [Lipitor] 20 mg tablet 20 mg PO DAILY Qty: 90 1RF aspirin 325 mg tablet 325 mg PO DAILY flecainide 100 mg tablet 100 mg PO Q12H Qty: 30 0RF Discharge Orders: Discharge ED (Routine); Ordered 03/28/25 Ordered By: Paul Melissa Referrals: Gamaliel Smith, [facility] [Primary Care Provider, Family Practice] Patient Instructions: Opioid Safety, Pain Management, Patient Portal & Noe Instructions Activity Restrictions/Additional Instructions: Leg Laceration Discharge Wound Care and Dressing Changes: - Keep the wound covered with a clean, non-adherent dressing (such as Telfa or a similar product) for the first 24-48 hours. After this period, the wound may be gently washed with mild soap and water; there is no increased risk of infection with early gentle cleansing. - Change the dressing daily, or sooner if it becomes wet or soiled. After cleaning, apply a thin layer of plain petrolatum or topical antibiotic ointment (e.g., Polysporin) to maintain a moist wound environment, which promotes healing and reduces infection risk. - Continue to keep the wound covered with a non-adherent dressing until suture removal, unless otherwise instructed. For wounds with significant exudate, consider an absorptive dressing; for fiber drier operator wounds, use a moisture-promoting dressing. - Avoid the use of antiseptics (e.g., Betadine, hydrogen peroxide) directly on the wound, as these can be cytotoxic and delay healing. Activity and Limb Care: - Elevate the affected leg as much as possible for the first several days to minimize swelling and reduce the risk of complications. - Avoid strenuous activity or heavy lifting with the affected leg until cleared by a healthcare provider. Medications: - Take cephalexin (Keflex) as prescribed to reduce the risk of infection, especially given the size and mechanism of the wound. Complete the full course unless otherwise directed. - Use pain medication as prescribed or recommended for comfort. Suture Removal: - Sutures should be removed in 14 days (2 weeks) to optimize healing and minimize scarring, as is standard for lower extremity wounds under tension. Signs and Symptoms Requiring Prompt Medical Attention: Return to the emergency department or contact your healthcare provider if any of the following occur: - Increasing redness, warmth, swelling, or pain at the wound site - Pus or foul-smelling drainage from the wound - Fever or chills - Red streaks extending from the wound - Separation of wound edges or bleeding that does not stop with gentle pressure - Numbness, loss of function, or color change in the leg Additional Instructions: - Tetanus vaccination has been updated; no further action is needed unless otherwise instructed. - Do not soak the wound (e.g., in a bathtub or swimming pool) until after suture removal and wound healing is confirmed. - If you have diabetes, are immunocompromised, or have other chronic medical conditions, monitor the wound closely and follow up as directed, as these factors may increase the risk of complications. Follow-Up: - Schedule a follow-up appointment for suture removal in 2 weeks, or sooner if there are any concerns about wound healing or signs of infection. Summary: Proper wound care, adherence to dressing change instructions, and vigilance for signs of infection are essential for optimal healing of large lower extremity lacerations. Maintaining a moist wound environment, using non-adherent dr essings, and timely suture removal are supported by current evidence. Print Language: Turkish Coding Level of Care Code ED Application Integration Architect for [facility] Documented by User: Brayan Urbina DO 03/28/25 15:56 HPI - Wound/Laceration General: Chief Complaint: Wound/Laceration Stated Complaint: left leg injury Time Seen by Provider: 03/28/25 14:36 Related Data Home Medications ?Medication ?Instructions ?Recorded ?Confirmed nitroglycerin 0.4 mg sublingual 0.4 mg sublingual PRN 09/30/19 02/04/25 tablet (Nitrostat) aspirin 325 mg tablet 325 mg PO DAILY 10/31/22 Held on 11/15/22. Instructions: Resume on 11/18/22. Previous Rx's ?Medication ?Instructions ?Recorded flecainide 100 mg tablet 100 mg PO Q12H #30 tabs 09/11 11/04 atorvastatin 20 mg tablet (Lipitor) 20 mg PO DAILY #90 tabs 02/04/25 potassium chloride 10 mEq 10 meq PO DAILY #90 tabs tablet,extended release(part/cryst) tizanidine 4 mg tablet 4 mg PO BID PRN muscle spast icity 02/04/25 #180 tabs zolpidem 10 mg tablet 10 mg PO BEDTIME #90 tabs cephalexin 500 mg capsule 500 mg PO Q8H 5 days #15 cap s 03/28/25 hydrocodone 5 mg-acetaminophen 325 1 tab PO DAILY PRN pain #10 tabs 03/28/25 mg tablet Allergies Allergy/AdvReac Type Severity Reaction Status Date / Time doxycycline Allergy ALGY-Rash Verified 03/28/25 14:28 trazodone Allergy feels weird Verified 03/28/25 14:28 PFSH ED PFSH: Medical History GERD (gastroesophageal reflux disease) Juvenile idiopathic scoliosis, thoracolumbar region Insomnia Hyperlipidemia, unspecified Restless leg Surgical History History of cystocele History of repair of rectocele History of colonoscopy 2003 History of hysterectomy 04/22/2018 with BSO History of shoulder surgery 2002 right shoulder replacement with 2 rotater cuff History of knee surgery Bilateral scope History of tubal ligation 1976 Family History Mother Cancer mother Heart disease Father Cancer lung Sister Hypertension Social History Smoking and tobacco/nicotine status: former use of tobacco/nicotine Second hand smoke exposure: No Alcohol intake: current Alcohol intake frequency: 0-2 Drinks per Day Alcohol type: wine Substance/Drug Use: never Adopted: No Caregiver/support person: No Lives independently: Yes Household members: spouse Housing: House Marital status: Number of children: 2 service: No Current occupational status: unemployed Do you think of yourself as: Straight/Heterosexual Current gender identity: Female Course 2 Vital Signs: Vital signs: Vital Signs Temperature 97.9 F 03/28/25 14:25 Pulse Rate 88 03/28/25 14:25 Respiratory Rate 16 03/28/25 14:25 Blood Pressure 114/71 03/28/25 14:25 Pulse Oximetry 95 03/28/25 14:25 Oxygen Delivery Me thod Room Air 03/28/25 14:25 MDM - Wound/Laceration Medical Decision Making This was a complex laceration presenting to the emergency department requiring procedural closure Emergency Department. Wound margins somewhat revised with excision of protruding adiposity, overall the skin was very thin so loose closure utilized for reapproximation. Overall 12 sutures were placed, 1 horizontal mattress at the tip to avoid hyperemia of the wound. This wound was not contaminated and bleeding had been controlled prehospital. She is informed to have the sutures out in 2 weeks and to do appropriate dressing changes every day, prior to discharge she has petroleum gauze placed with a nonadherent dressing and Coban and informed to change this in 24 to 48 hours. Thorough irrigation of the wound with 500 cc normal saline, overall the procedure tolerated well and she did note improvement of her symptoms after lidocaine with epi and [place] given here. For prophylaxis and due to the extent of the wound, prophylactic Keflex for few days as prescribed as well as a few [place] pills for home. Other conservative measures I discussed and she does have a primary care provider that she can follow-up with for reevaluation and suture removal. Discussed with her signs and symptoms of infection to watch for and monitor, patient and family did endorse understanding and she is noted to be ambulatory out of the emergency department. I did feel that x-ray of the extremity not necessary at this time with no concern of foreign body or any bony injury. Chart reviewed and patient discussed with midlevel. Agree with assessment and plan. Discharge Plan Discharge Patient Disposition: Home Clinical Impression: Laceration of left leg Qualifiers: Encounter type: initial encounter Qualified Code(s): S81.812A - Laceration without foreign body, left lower leg, initial encounter Condition: Stable Prescriptions: New cephalexin 500 mg capsule 500 mg PO Q8H 5 Days Qty: 15 0RF hydrocodone-acetaminophen 5-325 mg tablet 1 tab PO DAILY PRN (Reason: pain) Qty: 10 0RF No Action nitroglycerin [Nitrostat] 0.4 mg tablet, sublingual 0.4 mg SUBLINGUAL PRN zolpidem 10 mg tablet 10 mg PO BEDTIME Qty: 90 1RF tizanidine 4 mg tablet 4 mg PO BID PRN (Reason: muscle spasticity) Qty: 180 1RF potassium chloride 10 mEq tablet,ER particles/crystals 10 meq PO DAILY Qty: 90 1RF atorvastatin [Lipitor] 20 mg tablet 20 mg PO DAILY Qty: 90 1RF aspirin 325 mg tablet 325 mg PO DAILY flecainide 100 mg tablet 100 mg PO Q12H Qty: 30 0RF Discharge Orders: Discharge ED (Routine); Ordered 03/28/25 Ordered By: Paul Melissa Referrals: Gamaliel Smith, [facility] [Primary Care Provider, Family Practice] Patient Instructions: Opioid Safety, Pain Management, Patient Portal & Noe Instructions Activity Restrictions/Additional Instructions: Leg Laceration Discharge Wound Care and Dressing Changes: - Keep the wound covered with a clean, non-adherent dressing (such as Telfa or a similar product) for the first 24-48 hours. After this period, the wound may be gently washed with mild soap and water; there is no increased risk of infection with early gentle cleansing. - Change the dressing daily, or sooner if it becomes wet or soiled. After cleaning, apply a thin layer of plain petrolatum or topical antibiotic ointment (e.g., Polysporin) to maintain a moist wound environment, which promotes healing and reduces infection risk. - Continue to keep the wound covered with a non-adherent dressing until suture removal, unless otherwise instructed. For wounds with significant exudate, consider an absorptive dressing; for fiber drier operator wounds, use a moisture-promoting dressing. - Avoid the use of antiseptics (e.g., Betadine, hydrogen peroxide) directly on the wound, as these can be cytotoxic and delay healing. Activity and Limb Care: - Elevate the affected leg as much as possible for the first several days to minimize swelling and reduce the risk of complications. - Avoid strenuous activity or heavy lifting with the affected leg until cleared by a healthcare provider. Medications: - Take cephalexin (Keflex) as prescribed to reduce the risk of infection, especially given the size and mechanism of the wound. Complete the full course unless otherwise directed. - Use pain medication as prescribed or recommended for comfort. Suture Removal: - Sutures should be removed in 14 days (2 weeks) to optimize healing and minimize scarring, as is standard for lower extremity wounds under tension. Signs and Symptoms Requiring Prompt Medical Attention: Return to the emergency department or contact your healthcare provider if any of the following occur: - Increasing redness, warmth, swelling, or pain at the wound site - Pus or foul-smelling drainage from the wound - Fever or chills - Red streaks extending from the wound - Separation of wound edges or bleeding that does not stop with gentle pressure - Numbness, loss of function, or color change in the leg Additional Instructions: - Tetanus vaccination has been updated; no further action is needed unless otherwise instructed. - Do not soak the wound (e.g., in a bathtub or swimming pool) until after suture removal and wound healing is confirmed. - If you have diabetes, are immunocompromised, or have other chronic medical conditions, monitor the wound closely and follow up as directed, as these factors may increase the risk of complications. Follow-Up: - Schedule a follow-up appointment for suture removal in 2 weeks, or sooner if there are any concerns about wound healing or signs of infection. Summary: Proper wound care, adherence to dressing change instructions, and vigilance for signs of infection are essential for optimal healing of large lower extremity lacerations. Maintaining a moist wound environment, using non-adherent dressings, and timely suture removal are supported by current evidence. Print Language: Turkish Coding Level of Care Code ED Application Integration Architect for [place]
== END 2025-03-28 15:38 | disposition home or self-care (01) ==
PROVIDERS: Emergency Provider Physician Assistant; PCP Nurse Practitioner
DX: S81.812A Laceration without foreign body, left lower leg, initial encounter (principal); Z79.82 Long term (current) use of aspirin; Z87.891 Personal history of nicotine dependence; E78.5 Hyperlipidemia, unspecified; W26.8XXA Contact with other sharp object(s), not elsewhere classified, initial encounter
CPT/HCPCS: 12004; 90715; 99283; J9999